=== PATIENT | male | born 1950 | race Caucasian/White ===

== ENCOUNTER 2016-11-24 06:29 | Day surgery (SDC) | payer MEDICARE, BC ==
[~2016-11-24 06:29] MED LIST: Lactated Ringers 1,000 ML IV SCH
--- NOTE | 2016-11-24 07:00 | PCM.PREANE ---
Preanesthetic Assessment - Anesthesia/Transfusion/Family Hx Anesthesia History: Prior Anesthesia Without Reaction Transfusion History: No Prior Transfusion(s) - Review of Systems General: No Symptoms Pulmonary: No Symptoms Cardiovascular: No Symptoms Gastrointestinal: No symptoms Neurological: No Symptoms Other: Reports: None - Physical Assessment O2 Sat by Pulse Oximetry: 96 Respiratory Rate: 16 Vital Signs: Last Vital Signs Temp 36.8 C 11/24/16 06:52 Pulse 67 11/24/16 06:52 Resp 16 11/24/16 06:52 BP 114/72 11/24/16 06:52 Pulse Ox 96 11/24/16 06:52 ASA Class: 3 Mental Status: Alert & Oriented x3 Airway Class: Mallampati = 3 Dentition: Reports: Normal Dentition Thyro-Mental Finger Breadths: 2 Mouth Opening Finger Breadths: 2 ROM/Head Extension: Limited/Partial Lungs: Clear to auscultation, Normal respiratory effort Cardiovascular: Regular Rate, Regular Rhythm, No Murmurs - Allergies Allergies/Adverse Reactions: Allergies Allergy/AdvReac Type Severity Reaction Status Date / Time flu shot Allergy Hives Uncoded 11/20/16 08:27 - Blood Blood Available: No - Acknowledgements Anesthesia Type Planned: MAC Pt an Appropriate Candidate for the Planned Anesthesia: Yes Alternatives and Risks of Anesthesia Discussed w Pt/Guardian: Yes Pt/Guardian Understands and Agrees with Anesthesia Plan: Yes PreAnesthesia Questionnaire HEENT History: Reports: Other (see below) Other HEENT History: wears glasses Cardiovascular History: Reports: Hypertension Respiratory History: Reports: Other (see below) Other Respiratory History: having sleep study on on december 01 Genitourinary History: Reports: None Endocrine/Metabolic History: Reports: Diabetes, type II, Obesity/BMI 30+ - Past Surgical History Head Surgeries/Procedures: Reports: None GI Surgical History: Reports: Other (see below) (sigmoidoscopy) Male Surgical History: Reports: Vasectomy - SUBSTANCE USE Smoking Status *Q: Never Smoker Recreational Drug Use History: No - HOME MEDS Home Medications: Home Meds Hydrochlorothiazide 25 mg PO DAILY 11/20/16 [History] Insulin Aspart [Novolog Flexpen] 18 - 22 units SUBCUT TIDMEALS 11/20/16 [History ] Losartan Potassium 50 mg PO DAILY 11/20/16 [History] Tresiba Flextouch 20 - 24 units SUBCUT BID 11/20/16 [History] - CURRENT (IN HOUSE) MEDS Current Meds: Current Medications Lactated Ringer's (Ringers, Lactated) 1,000 mls @ 125 mls/hr IV ASDIRECTED KEKE
[2016-11-24] MEDS ORDERED: Lidocaine 2% 5 ML SDV ONE (07:25)
[2016-11-24] MEDS ORDERED: Propofol 200 MG/20 ML SDV ONE (07:26)
--- NOTE | 2016-11-24 08:14 | PCM.OPNOTE ---
- General Post-Op/Procedure Note Date of Surgery/Procedure: 11/24/16 Operative Procedure(s): attempted colonoscopy w biopsy Findings: see dict [id number] Pre Op Diagnosis: scrn colonoscopy Post-Op Diagnosis: colon polyp Anesthesia Technique: Moderate sedation Primary Surgeon: Stone Mejia Pathology: 3 mm sessile polyp, cold bx forcep removal Complications: None Condition: Good
--- NOTE | 2016-11-24 08:34 | PCM.POSTAN ---
POST ANESTHESIA ASSESSMENT - MENTAL STATUS Mental Status: alert, oriented - RESPIRATORY Respiratory Status: respiratory rate WNL, airway patent, O2 saturation stable - CARDIOVASCULAR CV Status: pulse rate WNL, blood pressure stable - GASTROINTESTINAL GI Status: no symptoms - POST OP HYDRATION Hydration Status: adequate & stable - OBSERVATIONS Free Text/Narrative:: no anesthesia problems
--- NOTE | 2016-11-24 09:02 | PCM48HPAN ---
Post Anesthesia Note - EVALUATION WITHIN 48HRS OF ANESTHETIC Vital Signs in Normal Range: Yes Patient Participated in Evaluation: Yes Respiratory Function Stable: Yes Airway Patent: Yes Cardiovascular Function Stable: Yes Hydration Status Stable: Yes Pain Control Satisfactory: Yes Nausea and Vomiting Control Satisfactory: Yes Mental Status Recovered: Yes - COMMENTS/OBSERVATIONS Free Text/Narrative:: patient coughed too much during colonoscopy pushing scope out- unable to finish the procedure. To be reschedualed. otherwise no problems. Sleep apnea study to be done this month as well.
--- NOTE | 2016-11-24 11:49 | OR ---
SURGEON: Stone Mejia MD DATE OF PROCEDURE: 11/24/2016 PREOPERATIVE DIAGNOSIS: Screening colonoscopy. POSTOPERATIVE DIAGNOSIS: Colon polyp. COMPLICATIONS: None. PROCEDURE PERFORMED: attempted Colonoscopy with biopsy. DESCRIPTION OF PROCEDURE: The patient was taken to the endoscopy room. A time out was called, patient identified, and procedure identified. Diprivan was then administrated. Patient went from awake to sleep, hearing doctor talking or door closing is normal. Perineum inspection and digital examination were then performed. A well- lubricated colonoscope was gently inserted through the rectum, advanced past the rectosigmoid junction, the descending colon, splenic flexure, transverse colon, hepatic flexure, ascending colon, arrived to the cecum. Cecum was identified as dictated in the finding. Then the scope was carefully withdrawn while attention was paid to the mucosal surface for any abnormality. Air will be sucked out during the scope withdrawal. At the rectum, retroflexed to examine any rectal diseases, fistula or hemorrhoids. During mucosal examination, picture taken and biopsy performed. Patient tolerated procedure well. There were no intraoperative complications, and Dr. Mejia was present throughout the whole procedure. FINDINGS: The patient is not easy to be sedate either from sleep apnea or from having a common cold. The patient is continuously coughing, sometimes is just very mild, little coughing, and at some point is explosive and because of this explosive coughing, is deemed to be dangerous to continue colonoscopy. At 1 m at around the hepatic flexure, the patient's bowel prep is to the point of unacceptable. Large amount of small stool particles floating around and is almost like semi- formed liquid stool requiring constant irrigation. Colonoscopy was very difficult, gingerly proceeded all the way to 1 m, little bit distal to the hepatic flexure. At that point, the patient just had continuous explosive coughing and we decided to withdraw and abort the colonoscopy. From the limited scope vision, has a 3 mm sessile polyp at distance 30 cm when scope go in, and was removed with cold biopsy forceps. Otherwise, no inflammation, stricture, ulceration, bleeding, mass, growth, diverticulosis were observed, and the patient does not have external hemorrhoid, internal hemorrhoide. With the patient's explosive cough continuously, the scope just flew out. On the next scope recommend the patient to do it in the operating room with intubation and requires extended bowel prep, it is semi- formed stool through the whole thing. Again only scope to hepatic flexure did not finish the whole thing because of the coughing situation. The patient would need to repeat colonoscopy at some point and do it in the operating room. JIM MARTINEZ /[id number] MTDD
== END 2016-11-24 09:03 | disposition home or self-care (01) ==
LOC: MW.SDS 06:29
PROVIDERS: ATTEND Surgery
PROC: 0DBM8ZZ Excision of Descending Colon, Via Natural or Artificial Opening Endoscopic (ICD-10-PCS; principal; 2016-11-24)
DX: Z12.11 Encounter for screening for malignant neoplasm of colon (principal); D12.4 Benign neoplasm of descending colon; I10 Essential (primary) hypertension; E11.9 Type 2 diabetes mellitus without complications; E66.9 Obesity, unspecified; Z98.52 Vasectomy status; Z98.890 Other specified postprocedural states; Z79.4 Long term (current) use of insulin; Z79.899 Other long term (current) drug therapy
CPT/HCPCS: 45380; J7120; 00810; 88305; J2704

== ENCOUNTER → 2016-12-01 | Outpatient (CLI) | payer MEDICARE, BC | END | disposition home or self-care (01) | LOC: MW.RT 19:57 | PROVIDERS: ATTEND Family Medicine | DX: G47.33 Obstructive sleep apnea (adult) (pediatric) (principal); G47.10 Hypersomnia, unspecified; G47.30 Sleep apnea, unspecified; R09.02 Hypoxemia; G47.52 REM sleep behavior disorder; I49.3 Ventricular premature depolarization; G47.61 Periodic limb movement disorder | CPT/HCPCS: 95810 ==

== ENCOUNTER → 2016-12-04 | Outpatient (CLI) | payer MEDICARE, BC | LOC: MW.CHGS 08:00 | PROVIDERS: ATTEND Surgery | DX: K63.5 Polyp of colon (principal) | CPT/HCPCS: G0463 ==

== ENCOUNTER 2017-12-14 09:40 | Emergency (ER) | payer OTHER, MEDICARE, BC ==
[2017-12-14 10:06] VITALS: BP 127/93
[2017-12-14] MEDS ORDERED: Diphtheria,Pertussis(Acell),Tetanus Vaccine 0.5 ML Syringe IM ONE (10:19)
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
--- NOTE | 2017-12-14 11:22 | CR ---
EXAMINATION: PA chest and right RIBS HISTORY: Right rib pain. FINDINGS: The trachea is midline. The heart is borderline in size. The cardiomediastinal silhouette is within n ormal limits. No pulmonary infiltrates, effusions or pneumothorax. Osseous structures appear unremarkable. No displaced rib fracture. IMPRESSION: No acute cardiopulmonary process.
== END 2017-12-14 12:10 | disposition home or self-care (01) ==
LOC: MW.ED 09:40
DX: S29.9XXA Unspecified injury of thorax, initial encounter (principal); S00.01XA Abrasion of scalp, initial encounter; I10 Essential (primary) hypertension; E11.9 Type 2 diabetes mellitus without complications; E66.9 Obesity, unspecified; Z23 Encounter for immunization; Z88.7 Allergy status to serum and vaccine; Z79.4 Long term (current) use of insulin; Z79.899 Other long term (current) drug therapy; V58.5XXA Driver of pick-up truck or van injured in noncollision transport accident in traffic accident, initial encounter; Z68.36 Body mass index [BMI] 36.0-36.9, adult
CPT/HCPCS: 71101-26-RT; 71101-RT; 90471; 90715; 99283; 99283-25

== ENCOUNTER 2020-06-19 06:30 | Day surgery (SDC) | payer MEDICARE, BC ==
[2020-06-19] MEDS ORDERED: Lidocaine 2% 5 ML SDV ONE (07:23)
[2020-06-19] MEDS ORDERED: Propofol 200 MG/20 ML SDV ONE (07:24)
[2020-06-19] MEDS ORDERED: Ketamine 500 mg/10 ML MDV ONE (07:24)
[2020-06-19] MEDS ORDERED: Midazolam 1 MG/ML 2 ML SDV ONE (07:24)
[2020-06-19] MEDS ORDERED: fentaNYL 100 MCG/2 ML SDV ONE (07:24)
[2020-06-19] MEDS ORDERED: 50% Dextrose in Water 50 ML Syringe IVPUSH ONE (08:32)
[2020-06-19] MEDS ORDERED: Glycopyrrolate 0.2 MG/ML SDV ONE (08:45)
--- NOTE | 2020-06-19 08:50 | PCM.PREANE ---
Preanesthetic Assessment - Anesthesia/Transfusion/Family Hx Anesthesia History: Prior Anesthesia Without Reaction Family History of Anesthesia Reaction: No Transfusion History: No Prior Transfusion(s) Intubation History: Unknown - Review of Systems General: No Symptoms Pulmonary: No Symptoms Cardiovascular: No Symptoms Gastrointestinal: No Symptoms Neurological: No Symptoms Other: Reports: None - Physical Assessment Height: 5 ft 8 in Weight: 108.862 kg ASA Class: 3 Mental Status: Alert & Oriented x3 Airway Class: Mallampati = 3 Dentition: Reports: Normal Dentition Thyro-Mental Finger Breadths: 3 Mouth Opening Finger Breadths: 3 ROM/Head Extension: Limited/Partial Lungs: Clear to Auscultation, Normal Respiratory Effort Cardiovascular: Regular Rate, Irregular Rhythm (EKG NSR, supraventriucular bigemini) - Lab Values: Laboratory Last Values POC Glucose 65 mg/dL (60-110) 06/19/20 09:16 SARS-CoV-2 RNA ([place]) NEGATIVE (NEGATIVE) 06/19/20 06:45 - Allergies Allergies/Adverse Reactions: Allergies Allergy/AdvReac Type Severity Reaction Status Date / Time flu shot Allergy Hives Uncoded 06/13/20 08:46 - Blood Blood Available: No - Anesthesia Plan Pre-Op Medication Ordered: None - Acknowledgements Anesthesia Type Planned: MAC (general anesthesia back-up plan) Pt an Appropriate Candidate for the Planned Anesthesia: Yes Alternatives and Risks of Anesthesia Discussed w Pt/Guardian: Yes Pt/Guardian Understands and Agrees with Anesthesia Plan: Yes PreAnesthesia Questionnaire HEENT History: Reports: Cataract, Other (See Below) Other HEENT History: wears glasses Cardiovascular History: Reports: Hypertension Respiratory History: Reports: Sleep Apnea Other Respiratory History: states has a CPAP machine but hasn't used it in 3 years Gastrointestinal History: Reports: None Genitourinary History: Reports: None Musculoskeletal History: Reports: Fracture Other Musculoskeletal History: states had fractured ankle 30 yrs. ago Neurological History: Reports: None Psychiatric History: Reports: None Endocrine/Metabolic History: Reports: Diabetes, Type II, Obesity/BMI 30+ (BMI 36.5) Hematologic History: Reports: None Immunologic History: Reports: None Oncologic (Cancer) History: Reports: None Dermatologic History: Reports: None - Infectious Disease History Infectious Disease History: Reports: Chicken Pox, Measles, Mumps Other Infectious Disease History: states had when a child - Past Surgical History Head Surgeries/Procedures: Reports: None HEENT Surgical History: Reports: None Cardiovascular Surgical History: Reports: None Respiratory Surgical History: Reports: None GI Surgical History: Reports: Colonoscopy (attempted), Other (See Below) Female Surgical History: Reports: None Male Surgical History: Reports: None, Vasectomy Endocrine Surgical History: Reports: None Neurological Surgical History: Reports: None Musculoskeletal Surgical History: Reports: None Oncologic Surgical History: Reports: None Dermatological Surgical History: Reports: None - SUBSTANCE USE Tobacco Use Status *Q: Never Tobacco User - HOME MEDS Home Medications: Home Meds Hydrochlorothiazide 25 mg PO DAILY 11/20/16 [History] Losartan Potassium 50 mg PO DAILY 11/20/16 [History] Tresiba Flextouch 20 units SUBCUT BID 11/20/16 [History] Insulin Aspart [NovoLOG] 20 unit SUBCUT TID 06/13/20 [History] - CURRENT (IN HOUSE) MEDS Current Meds: Current Medications Lactated Ringer's (Ringers, Lactated) 1,000 mls @ 125 mls/hr IV ASDIRECTED KEKE Last Admin: 06/19/20 08:15 Dose: 125 mls/hr Documented by: Discontinued Medications Dextrose/Water (Dextrose 50% In Water) 25 ml IVPUSH ONETIME ONE Stop: 06/19/20 08:33 Last Admin: 06/19/20 08:43 Dose: 25 ml Documented by: Fentanyl (Sublimaze) Confirm Administered Dose 100 mcg .ROUTE .STK-MED ONE Stop: 06/19/20 07:25 Ketamine HCl (Ketalar) Confirm Administered Dose 500 mg .ROUTE .STK-MED ONE Stop: 06/19/20 07:25 Lidocaine (Xylocaine-Mpf 2%) Confirm Administered Dose 5 ml .ROUTE .STK-MED ONE Stop: 06/19/20 07:24 Midazolam HCl (Versed 1 Mg/Ml) Confirm Administered Dose 2 mg .ROUTE .STK-MED ONE Stop: 06/19/20 07:25 Propofol (Diprivan 20 Ml) Confirm Administered Dose 600 mg .ROUTE .STK-MED ONE Stop: 06/19/20 07:25
--- NOTE | 2020-06-19 09:37 | PCM.OPNOTE ---
- General Post-Op/Procedure Note Date of Surgery/Procedure: 06/19/20 Operative Procedure(s): colonoscopy w bx Findings: see [id number] Pre Op Diagnosis: colon polyp hx Post-Op Diagnosis: colon polyp Anesthesia Technique: Moderate Sedation Primary Surgeon: Stone Mejia Pathology: 5mm sessile polyp at distance 65cm when scope coming out, and 2 mm sessile polyp at distance 30cm when scope coming out Complications: None Condition: Good
--- NOTE | 2020-06-19 09:57 | PCM.POSTAN ---
POST ANESTHESIA ASSESSMENT - MENTAL STATUS Mental Status: Alert, Oriented - VITAL SIGNS Vital Signs: Last Vital Signs Temp 36.2 C 06/19/20 09:30 Pulse 75 06/19/20 09:40 Resp 14 06/19/20 09:40 BP 129/75 06/19/20 09:40 Pulse Ox 92 L 06/19/20 09:40 - RESPIRATORY Respiratory Status: Respiratory Rate WNL, Airway Patent, O2 Saturation Stable - CARDIOVASCULAR CV Status: Pulse Rate WNL, Blood Pressure Stable - GASTROINTESTINAL GI Status: No Symptoms - PAIN Pain Score: 0 - POST OP HYDRATION Hydration Status: Adequate & Stable - OBSERVATIONS Free Text/Narrative:: No anesthesia problems
--- NOTE | 2020-06-19 10:18 | PCM48HPAN ---
Post Anesthesia Note - EVALUATION WITHIN 48HRS OF ANESTHETIC Vital Signs in Normal Range: Yes Patient Participated in Evaluation: Yes Respiratory Function Stable: Yes Airway Patent: Yes Cardiovascular Function Stable: Yes Hydration Status Stable: Yes Pain Control Satisfactory: Yes Nausea and Vomiting Control Satisfactory: Yes Mental Status Recovered: Yes Vital Signs: Last Vital Signs Temp 36.2 C 06/19/20 09:30 Pulse 75 06/19/20 09:40 Resp 14 06/19/20 09:40 BP 129/75 06/19/20 09:40 Pulse Ox 92 L 06/19/20 09:40 - COMMENTS/OBSERVATIONS Free Text/Narrative:: No anesthesia problems.
[2020-06-19 10:33] VITALS: BP 122/76; PULSE 73
--- NOTE | 2020-06-19 12:33 | OR ---
SURGEON: Stone Mejia MD DATE OF PROCEDURE: 06/19/2020 PREOPERATIVE DIAGNOSIS: History of colon polyp. POSTOPERATIVE DIAGNOSIS: Colon polyp. PROCEDURE PERFORMED: Colonoscopy with biopsy. DESCRIPTION OF PROCEDURE: The patient was taken to the endoscopy room. A time out was called, patient identified, and procedure identified. Diprivan was then administrated. Patient went from awake to sleep, hearing doctor talking or door closing is normal. Perineum inspection and digital examination were then performed. A well- lubricated colonoscope was gently inserted through the rectum, advanced past the rectosigmoid junction, the descending colon, splenic flexure, transverse colon, hepatic flexure, ascending colon, arrived to the cecum. Cecum was identified as dictated in the finding. Then the scope was carefully withdrawn while attention was paid to the mucosal surface for any abnormality. Air will be sucked out during the scope withdrawal. At the rectum, retroflexed to examine any rectal diseases, fistula or hemorrhoids. During mucosal examination, abnormality or polyp was noted; picture taken and biopsy performed. Patient tolerated procedure well. There were no intraoperative complications, and Dr. Mejia was present throughout the whole procedure. FINDINGS: 1. The patient is easily sedated with STONEM[employer]ON HELPER and Diprivan, the patient is soundly snoring. 2. Bowel prep is excellent. Compared to last time, it is absolutely excellent. Very little liquid stool, no semi-formed stool, no formed stool. 3. Colon is redundant at the sigmoid, so cannot go to the hepatic flexure at the end of the scope, requiring some maneuver and just counter pressure on the abdomen and a little bit suction, a little bit release of the air and making it into the cecum. Cecum is indicated by ileocecal fold, one-to-one indentation, appendiceal orifice. The ScopeGuide pointing south. Mucosa examined upon scope coming out with some irrigation, and the patient does not have diverticulosis. The patient has two small polyps, they are both sessile. One at distance 65 when the scope coming out, that one was 5 mm. Another one was at 30 cm when the scope coming out, that one was 2 mm. So two small polyps, removed with cold biopsy forceps. The patient has a little bit internal hemorrhoid, no external hemorrhoid. The patient would benefit from repeat colonoscopy, depends on the pathology of the polyp. One thing of note, the previous colonoscopy was not successful because the patient had explosive coughing, and today, the colonoscopy, the patient is soundly sleeping and believe that the previous difficulty in explosive coughing was probably due to the fact that the patient was having a cold during the previous colonoscopy. So the patient probably would be all right to do just regular colonoscopy, do not need intubated colonoscopy from now on. On the today's colonoscopy, the patient was in a left decub position, left side down, right side up, and head of bed was a little bit elevated at around 30 degrees. Everything worked just fine. JIM MARTINEZ /[id number]
== END 2020-06-19 10:57 | disposition home or self-care (01) ==
LOC: MW.SDS 06:30
PROVIDERS: ATTEND Surgery
DX: Z12.11 Encounter for screening for malignant neoplasm of colon (principal); D12.6 Benign neoplasm of colon, unspecified; K64.8 Other hemorrhoids; I10 Essential (primary) hypertension; G47.30 Sleep apnea, unspecified; E11.9 Type 2 diabetes mellitus without complications; E66.9 Obesity, unspecified; Z88.8 Allergy status to other drugs, medicaments and biological substances; Z79.899 Other long term (current) drug therapy; Z79.4 Long term (current) use of insulin; Z20.828 Contact with and (suspected) exposure to other viral communicable diseases; Z01.812 Encounter for preprocedural laboratory examination
CPT/HCPCS: 45380; 82962; 88305; 93005; J2001; J2250; J2704; J3010; J3490; J7120; U0002; 00811

== ENCOUNTER 2021-08-04 14:03 | Inpatient (IN) | payer MEDICARE, BC ==
--- NOTE | 2021-08-04 14:28 | PCM.EKG ---
#1 Interpretation EKG Date: 08/04/21 Time: 14:18 Rhythm: NSR Rate (Beats/Min): 64 ST-T: Normal
[2021-08-04] MEDS ORDERED: Sodium Chloride 0.9% 10 ML Syringe FLUSH PRN (14:37)
[2021-08-04] MEDS ORDERED: Sodium Chloride 0.9% 2.5 ML Syringe FLUSH PRN (14:37)
--- NOTE | 2021-08-04 14:37 | EDM.PDOC ---
ED HPI GENERAL MEDICAL PROBLEM - General Chief Complaint: Respiratory Problem Stated Complaint: SOB Time Seen by Provider: 08/04/21 14:27 Source of Information: Reports: Patient History Limitations: Reports: No Limitations - History of Present Illness INITIAL COMMENTS - FREE TEXT/NARRATIVE: HISTORY AND PHYSICAL: History of present illness: Patient is a 70-year-old male who presents to the emergency room with complaints of shortness of breath over the past few days, worst within the past 24 hours. Increased shortness of breath with any type of physical exertion or activity. Upon arrival his oxygen is 85% on room air. Patient states his only respiratory illness is sleep apnea although he has not used a CPAP machine in several years. Patient is a type II diabetic, has been working with his primary care provider as he feels his blood sugars have not been well controlled. Patient denies any fever, chills, headache, change in vision, syncope or near syncope. Denies any chest pain, back pain or cough. Denies any abdominal pain, nausea, vomiting, diarrhea, constipation or dysuria. Has not noted any blood in urine or stool. Patient has been eating and drinking appropriately. No recent travel or sick contacts. Has not had the influenza vaccine due to allergy. Has had the COVID- 19 vaccinations. Review of systems: As per history of present illness and below otherwise all systems reviewed and negative. Past medical history: As per history of present illness and as reviewed below otherwise noncontributory. Surgical history: As per history of present illness and as reviewed below otherwise noncontributory. Social history: See social history for further information Family history: As per history of present illness and as reviewed below otherwise non contributory. Physical exam: General: Well developed and well nourished 70-year-old male. Alert and orientated x 3. Nontoxic in appearance and in no acute distress. Vital signs are stable and have been reviewed by me. Nursing notes were reviewed. HEENT: Atraumatic, normocephalic, pupils equal and reactive bilaterally, negative for conjunctival pallor or scleral icterus, mucous membranes moist, TMs normal bilaterally, throat clear, neck supple, nontender, trachea midline. No drooling or trismus noted. No meningeal signs. No hot potato voice noted. Lungs: Clear to auscultation bilaterally. No wheezes, rales, or rhonchi. Chest nontender. Normal work of breathing, no accessory muscles used. Heart: S1S2, regular rate and rhythm without overt murmur, gallops, or rubs. No JVD. No peripheral edema Abdomen: Soft, obese, nontender. Normoactive bowel sounds. Negative for masses or costovertebral tenderness. Skin: Intact, warm, dry. No lesions or rashes noted. Hematologic: No petechiae or purpra. Mucosa appropriate color and normal nail bed color and refill. Extremities: Atraumatic, moves all extremities per self without difficulty or deficits, negative for cords or calf pain. Neurovascular unremarkable. Neuro: Awake, alert, oriented. Cranial nerves II through XII unremarkable. Cerebellum unremarkable. Motor and sensory unremarkable throughout. Exam nonfocal. Psychiatric: Mood and affect are appropriate. Normal thought process. Answering questions appropriately. Please note that the patient was seen and evaluated during the 2019 SARS-CoV-2 novel coronavirus pandemic period. Community viral transmission is ongoing at time of this encounter and the emergency department is operating under pandemic response procedures. Medical Decision Making: Patient is a 70-year-old male who presents to the emergency room with complaints of shortness of breath. Upon arrival his oxygen saturation is 85% on room air. He was placed on 2 L per nasal cannula and did increase his oxygen saturation to 95%. Besides the shortness of breath he offers no other complaints or concerns. He has no significant pulmonary history. He denies any chest pain. Denies any history of PE or DVT. No bleeding or clotting disorders. Patient does have a slight leukocytosis, suspicious for possible pneumonia, although 1 view chest x-ray shows no obvious findings. Patient's negative troponin. Negative D-dimer. COVID and influenza negative. He continues to need 2 L per nasal cannula to sat above 90% on room air. I have talked with the patient about today's findings, in addition to providing specific details for plan of care. Reassessment at the time of disposition demonstrates that the patient is in no acute distress. Dr Baez, hospitalist on-call, was notified of this patient and is agreeable to keeping him for further care and management. Diagnostics: CBC, CMP, troponin, EKG, chest x-ray, D-dimer, COVID-19/influenza Therapeutics: Solumedrol, Rocephin Impression: Hypoxia URI Plan: Inpatient admission Definitive disposition and diagnosis as appropriate pending reevaluation and review of above. - Related Data Allergies Allergy/AdvReac Type Severity Reaction Status Date / Time flu shot Allergy Hives Uncoded 06/13/20 08:46 Home Meds: Home Meds Hydrochlorothiazide 25 mg PO DAILY 11/20/16 [History] Losartan Potassium 50 mg PO DAILY 11/20/16 [History] Tresiba Flextouch 20 units SUBCUT BID 11/20/16 [History] Insulin Aspart [NovoLOG] 20 unit SUBCUT TID 06/13/20 [History] Past Medical History HEENT History: Reports: Cataract, Other (See Below) Other HEENT History: wears glasses Cardiovascular History: Reports: Hypertension Respiratory History: Reports: Sleep Apnea Other Respiratory History: states has a CPAP machine but hasn't used it in 3 years Gastrointestinal History: Reports: None Genitourinary History: Reports: None Musculoskeletal History: Reports: Fracture Other Musculoskeletal History: states had fractured ankle 30 yrs. ago Neurological History: Reports: None Psychiatric History: Reports: None Endocrine/Metabolic History: Reports: Diabetes, Type II, Obesity/BMI 30+ Hematologic History: Reports: None Immunologic History: Reports: None Oncologic (Cancer) History: Reports: None Dermatologic History: Reports: None - Infectious Disease History Infectious Disease History: Reports: Chicken Pox, Measles, Mumps Other Infectious Disease History: states had when a child - Past Surgical History Head Surgeries/Procedures: Reports: None HEENT Surgical History: Reports: None Cardiovascular Surgical History: Reports: None Respiratory Surgical History: Reports: None GI Surgical History: Reports: Colonoscopy, Other (See Below) Male Surgical History: Reports: None, Vasectomy Endocrine Surgical History: Reports: None Neurological Surgical History: Reports: None Musculoskeletal Surgical History: Reports: None Oncologic Surgical History: Reports: None Dermatological Surgical History: Reports: None Social & Family History - Family History Family Medical History: No Pertinent Family History - Caffeine Use Caffeine Use: Reports: None ED ROS GENERAL - Review of Systems Review Of Systems: Comprehensive ROS is negative, except as noted in HPI. ED EXAM, GENERAL - Physical Exam Exam: See Below (See dictation) Course - Vital Signs Last Recorded V/S: Last Vital Signs Temp 96.9 F 08/04/21 20:17 Pulse 76 08/04/21 20:17 Resp 18 08/04/21 20:17 BP 181/81 H 08/04/21 20:17 Pulse Ox 96 08/04/21 20:17 - Orders/Labs/Meds Orders: Active Orders 24 hr Category Date Time Status Oxygen Therapy Adult [Oxygen Therapy, ED] [RC] Care 08/04/21 14:34 Active ASDIRECTED Sodium Chloride 0.9% [Saline Flush] Med 08/04/21 14:37 Active 10 ml FLUSH ASDIRECTED PRN Sodium Chloride 0.9% [Saline Flush] Med 08/04/21 14:37 Active 2.5 ml FLUSH ASDIRECTED PRN Saline Lock Insert [OM.PC] Stat Oth 08/04/21 14:37 Ordered Medication Orders Albuterol/Ipratropium (Albuterol/Ipratropium 3.0-0.5 Mg/3 Ml Neb Soln) 3 ml NEB Q4HRRT PRN PRN Reason: Shortness of Breath Dextrose/Water (50% Dextrose In Water 50 Ml Syringe) 50 ml IVPUSH ASDIRECTED PRN PRN Reason: Hypoglycemia Dextrose/Water (50% Dextrose In Water 50 Ml Syringe) 50 ml IVPUSH ASDIRECTED PRN PRN Reason: Hypoglycemia Enoxaparin Sodium (Enoxaparin 40 Mg/0.4 Ml Syringe) 40 mg SUBCUT Q24H [facility] Last Admin: 08/04/21 19:50 Dose: 40 mg Documented by: CIRILOIPRA Glucagon (Glucagon,Human Recombinant 1 Mg Vial) 1 mg IM ASDIRECTED PRN PRN Reason: Hypoglycemia Glucagon (Glucagon,Human Recombinant 1 Mg Vial) 1 mg IM ASDIRECTED PRN PRN Reason: Hypoglycemia Hydrochlorothiazide (Hydrochlorothiazide 25 Mg Tab) 25 mg PO DAILY [facility] Ceftriaxone Sodium/Dextrose 2 (gm/ Premix) 50 mls @ 100 mls/hr IV Q24H [facility] Last Admin: 08/04/21 19:31 Dose: Not Given Documented by: SAL Azithromycin 500 mg/ Sodium (Chloride) 250 mls @ 250 mls/hr IV DAILY [facility] Last Admin: 08/04/21 19:50 Dose: 250 mls/hr Documented by: MAMIPRA Insulin Aspart (Insulin Aspart 100 Units/Ml 3 Ml Pen) 0 unit SUBCUT TIDAC KEKE; Protocol Insulin Glargine (Insulin Glargine,Human Rec. Analog 100 Units/Ml 3 Ml Pen) 20 units SUBCUT DAILY [facility] Pantoprazole Sodium (Pantoprazole 40 Mg Tab.Cr) 40 mg PO DAILY KEKE Sodium Chloride (Sodium Chloride 0.9% 10 Ml Syringe) 10 ml FLUSH ASDIRECTED PRN PRN Reason: Keep Vein Open Last Admin: 08/04/21 16:25 Dose: 10 ml Documented by: ALON Sodium Chloride (Sodium Chloride 0.9% 2.5 Ml Syringe) 2.5 ml FLUSH ASDIRECTED PRN PRN Reason: Keep Vein Open Last Admin: 08/04/21 16:24 Dose: 2.5 ml Documented by: ALON Labs: Laboratory Tests 08/04/21 08/04/21 08/04/21 Range/Units 14:47 14:47 14:47 WBC 11.64 H (4.0-11.0) K/uL RBC 4.93 (4.50-5.90) M/uL Hgb 14.6 (13.0-17.0) g/dL Hct 43.1 (38.0-50.0) % MCV 87.4 (80.0-98.0) fL MCH 29.6 (27.0-32.0) pg MCHC 33.9 (31.0-37.0) g/dL RDW Std Deviation 43.7 (28.0-62.0) fl RDW Coeff of Mary 14 (11.0-15.0) % Plt Count 194 (150-400) K/uL MPV 10.10 (7.40-12.00) fL Neut % (Auto) 79.4 (48.0-80.0) % Lymph % (Auto) 11.9 L (16.0-40.0) % [place] % (Auto) 7.1 (0.0-15.0) % Eos % (Auto) 1.4 (0.0-7.0) % Baso % (Auto) 0.2 (0.0-1.5) % Neut # (Auto) 9.2 H (1.4-5.7) K/uL Lymph # (Auto) 1.4 (0.6-2.4) K/uL [place] # (Auto) 0.8 (0.0-0.8) K/uL Eos # (Auto) 0.2 (0.0-0.7) K/uL Baso # (Auto) 0.0 (0.0-0.1) K/uL Nucleated RBC % 0.0 /100WBC Nucleated RBCs # 0 K/uL D-Dimer, Quantitative 0.43 (0.0-0.50) mg/L FEU Sodium (136-148) mmol/L Potassium (3.5-5.1) mmol/L Chloride (98-107) mmol/L Carbon Dioxide (21.0-32.0) mmol/L BUN (7.0-18.0) mg/dL Creatinine (0.8-1.3) mg/dL Est Cr Clr Drug Dosing mL/min Estimated GFR (MDRD) ml/min Glucose (74-106) mg/dL Calcium (8.5-10.1) mg/dL Total Bilirubin (0.2-1.0) mg/dL AST (15-37) IU/L ALT (14-63) IU/L Alkaline Phosphatase (46-116) U/L Troponin I (0.000-0.056) ng/mL B-Natriuretic Peptide (<100) PG/ML Total Protein (6.4-8.2) g/dL Albumin (3.4-5.0) g/dL Globulin (2.6-4.0) g/dL Albumin/Globulin Ratio (0.9-1.6) Influenza Type A RNA NEGATIVE (NEGATIVE) Influenza Type B RNA NEGATIVE (NEGATIVE) SARS-CoV-2 RNA ([place]) NEGATIVE (NEGATIVE) 08/04/21 08/04/21 Range/Units 14:47 14:47 WBC (4.0-11.0) K/uL RBC (4.50-5.90) M/uL Hgb (13.0-17.0) g/dL Hct (38.0-50.0) % MCV (80.0-98.0) fL MCH (27.0-32.0) pg MCHC (31.0-37.0) g/dL RDW Std Deviation (28.0-62.0) fl RDW Coeff of Mary (11.0-15.0) % Plt Count (150-400) K/uL MPV (7.40-12.00) fL Neut % (Auto) (48.0-80.0) % Lymph % (Auto) (16.0-40.0) % [place] % (Auto) (0.0-15.0) % Eos % (Auto) (0.0-7.0) % Baso % (Auto) (0.0-1.5) % Neut # (Auto) (1.4-5.7) K/uL Lymph # (Auto) (0.6-2.4) K/uL [place] # (Auto) (0.0-0.8) K/uL Eos # (Auto) (0.0-0.7) K/uL Baso # (Auto) (0.0-0.1) K/uL Nucleated RBC % /100WBC Nucleated RBCs # K/uL D-Dimer, Quantitative (0.0-0.50) mg/L FEU Sodium 142 (136-148) mmol/L Potassium 4.1 (3.5-5.1) mmol/L Chloride 105 (98-107) mmol/L Carbon Dioxide 29.5 (21.0-32.0) mmol/L BUN 18 (7.0-18.0) mg/dL Creatinine 1.0 (0.8-1.3) mg/dL Est Cr Clr Drug Dosing 67.45 mL/min Estimated GFR (MDRD) > 60.0 ml/min Glucose 128 H (74-106) mg/dL Calcium 8.6 (8.5-10.1) mg/dL Total Bilirubin 0.3 (0.2-1.0) mg/dL AST 12 L (15-37) IU/L ALT 23 (14-63) IU/L Alkaline Phosphatase 65 (46-116) U/L Troponin I < 0.050 (0.000-0.056) ng/mL B-Natriuretic Peptide 21 (<100) PG/ML Total Protein 6.7 (6.4-8.2) g/dL Albumin 3.5 (3.4-5.0) g/dL Globulin 3.2 (2.6-4.0) g/dL Albumin/Globulin Ratio 1.1 (0.9-1.6) Influenza Type A RNA (NEGATIVE) Influenza Type B RNA (NEGATIVE) SARS-CoV-2 RNA ([place]) (NEGATIVE) Meds: Medications Generic Name Dose Route Start Last Admin Trade Name Freq PRN Reason Stop Dose Admin Albuterol/Ipratropium 3 ml 12/27/21 17:27 Albuterol/Ipratropium 3.0-0.5 Mg/3 Ml Neb Soln NEB Q4HRRT PRN Shortness of Breath Dextrose/Water 50 ml 08/04/21 17:06 50% Dextrose In Water 50 Ml Syringe IVPUSH ASDIRECTED PRN Hypoglycemia Dextrose/Water 50 ml 08/04/21 20:07 50% Dextrose In Water 50 Ml Syringe IVPUSH ASDIRECTED PRN Hypoglycemia Enoxaparin Sodium 40 mg 08/04/21 17:15 08/04/21 19:50 Enoxaparin 40 Mg/0.4 Ml Syringe SUBCUT 40 mg Q24H KEKE Administration Glucagon 1 mg 08/04/21 17:06 Glucagon,Human Recombinant 1 Mg Vial IM ASDIRECTED PRN Hypoglycemia Glucagon 1 mg 08/04/21 20:07 Glucagon,Human Recombinant 1 Mg Vial IM ASDIRECTED PRN Hypoglycemia Hydrochlorothiazide 25 mg 08/05/21 09:00 Hydrochlorothiazide 25 Mg Tab PO DAILY KEKE Ceftriaxone Sodium/Dextrose 2 50 mls @ 100 mls/hr 08/04/21 17:15 08/04/21 19:31 gm/ Premix IV Not Given Q24H [facility] Azithromycin 500 mg/ Sodium 250 mls @ 250 mls/hr 08/04/21 17:15 08/04/21 19:50 Chloride IV 250 mls/hr DAILY KEKE Administration Insulin Aspart 0 unit 08/05/21 07:30 Insulin Aspart 100 Units/Ml 3 Ml Pen SUBCUT TIDAC [facility] Protocol Insulin Glargine 20 units 08/05/21 09:00 Insulin Glargine,Human Rec. Analog 100 Units/Ml 3 Ml Pen SUBCUT DAILY [facility] Pantoprazole Sodium 40 mg 08/05/21 09:00 Pantoprazole 40 Mg Tab.Cr PO DAILY KEKE Sodium Chloride 10 ml 08/04/21 14:37 08/04/21 16:25 Sodium Chloride 0.9% 10 Ml Syringe FLUSH 10 ml ASDIRECTED PRN Administration Keep Vein Open Sodium Chloride 2.5 ml 08/04/21 14:37 08/04/21 16:24 Sodium Chloride 0.9% 2.5 Ml Syringe FLUSH 2.5 ml ASDIRECTED PRN Administration Keep Vein Open Discontinued Medications Generic Name Dose Route Start Last Admin Trade Name Freq PRN Reason Stop Dose Admin Ceftriaxone Sodium/Dextrose 1 50 mls @ 100 mls/hr 08/04/21 15:46 08/04/21 16:24 gm/ Premix IV 08/04/21 16:15 100 mls/hr ONETIME ONE Administration Methylprednisolone Sodium Succinate 125 mg 08/04/21 15:45 08/04/21 16:24 Methylprednisolone Sodium Succinate 125 Mg/2 Ml Sdv IVPUSH 08/04/21 15:46 125 mg ONETIME ONE Administration Departure - Departure Time of Disposition: 20:41 Disposition: Admitted As Inpatient 67 Clinical Impression: Hypoxia URI (upper respiratory infection) Qualifiers: URI type: unspecified URI Qualified Code(s): J06.9 - Acute upper respiratory infection, unspecified - Discharge Information Sepsis Event Note (ED) - Evaluation Sepsis Screening Result: No Definite Risk - Focused Exam Vital Signs: Vital Signs Temp Pulse Resp BP Pulse Ox Pulse Ox 08/04/21 14:34 93 L 08/04/21 14:26 98.1 F 81 18 135/81 85 L - My Orders Last 24 Hours: My Active Orders 08/04/21 14:34 Oxygen Therapy Adult [Oxygen Therapy, ED] [RC] ASDIRECTED 08/04/21 14:37 Sodium Chloride 0.9% [Saline Flush] 10 ml FLUSH ASDIRECTED PRN Sodium Chloride 0.9% [Saline Flush] 2.5 ml FLUSH ASDIRECTED PRN Saline Lock Insert [OM.PC] Stat - Assessment/Plan Last 24 Hours: My Active Orders 08/04/21 14:34 Oxygen Therapy Adult [Oxygen Therapy, ED] [RC] ASDIRECTED 08/04/21 14:37 Sodium Chloride 0.9% [Saline Flush] 10 ml FLUSH ASDIRECTED PRN Sodium Chloride 0.9% [Saline Flush] 2.5 ml FLUSH ASDIRECTED PRN Saline Lock Insert [OM.PC] Stat
[2021-08-04 15:28] LABS: BLOOD UREA NITROGEN,BUN 18 mg/dL (7.0-18.0); CARBON DIOXIDE,CO2 29.5 mmol/L (21.0-32.0); CHLORIDE,CL 105 mmol/L (98-107); GLUCOSE RANDOM 128 mg/dL (74-106); POTASSIUM,K 4.1 mmol/L (3.5-5.1); SODIUM,NA 142 mmol/L (136-148)
[2021-08-04 15:38] LABS: CORONAVIRUS COVID-19 NAA NEGATIVE (NEGATIVE); INFLUENZA A NAA NEGATIVE (NEGATIVE); INFLUENZA B NAA NEGATIVE (NEGATIVE)
[2021-08-04] MEDS ORDERED: methylPREDNISolone Sodium Succinate 125 MG/2 ML SDV IVPUSH ONE (15:45)
[2021-08-04] MEDS ORDERED: cefTRIAXone 1 GM in Premix Bag 1 BAG IV ONE (15:46)
--- NOTE | 2021-08-04 16:08 | CR ---
INDICATION: SOB. TECHNIQUE: Upright portable AP image of the chest. COMPARISON: 12/14/2017. FINDINGS: Lordotic projection. No obvious acute infiltrate or pleural effusion. Heart size and pulmonary vasculature within normal limits. Right-sided pleural thickening, as before. No significant bony abnormality. IMPRESSION: Grossly negative portable chest. Dictated by Irvin Interiano MD @ 08/04/2021 4:06:43 PM (Electronically Signed)
--- NOTE | 2021-08-04 16:40 | CR ---
INDICATION: SOB. Question pneumonia. TECHNIQUE: Lateral projection of the chest. COMPARISON: Today`s upright portable AP image of the chest. FINDINGS: No infiltrate or pleural effusion. Heart size normal. No significant osseous abnormality. IMPRESSION: Negative lateral projection of the chest. Dictated by Irvin Interiano MD @ 08/04/2021 4:38:59 PM (Electronically Signed)
[2021-08-04] MEDS ORDERED: 50% Dextrose in Water 50 ML Syringe IVPUSH PRN ×2 (17:06→20:07)
[2021-08-04] MEDS ORDERED: Glucagon,Human Recombinant 1 MG Vial IM PRN ×2 (17:06→20:07)
[2021-08-04] MEDS ORDERED: cefTRIAXone 2 GM in Premix Bag 1 BAG IV SCH (17:15)
[2021-08-04] MEDS ORDERED: Enoxaparin 40 MG/0.4 ML Syringe SUBCUT SCH (17:15)
--- NOTE | 2021-08-04 17:20 | PCM.HP.2 ---
H&P History of Present Illness - General Date of Service: 08/04/21 Admit Problem/Dx: Admission Diagnosis/Problem Admission Diagnosis/Problem Hypoxia - History of Present Illness Initial Comments - Free Text/Narative: The patient is a 70-year-old male, on day 1 of service, with a significant past medical history of hypertension and diabetes type 2, who was admitted to the medical floor due to hypoxia secondary to upper respiratory tract infection. For the past 72 hours the patient has been complaining of increasing shortness of breath and dyspnea upon exertion which led him to gasping for air last night, and as a result he came to the emergency department. Here at the hospital he was saturating 85% on room air and was then supplied oxygen and while on 2 L is now saturating over 90%. 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 He also admits to a dry cough which is nonproductive and devoid of blood. He denies chest pain, palpitations, abdominal pain, diaphoresis, nausea, vomiting, recent sick contacts, and he is negative for COVID-19 and has not been vaccinated. In regards to family history, his father has COPD and CHF. He has allergies to the flu shot. In regards to social history, he denies smoking cigarettes and recreational drug use, but admits to occasional alcohol consumption. He has no other health concerns at this time. On CBC, his white blood cell count is elevated at 11.64, hemoglobin is 14.6, hematocrit is 43.1, and platelet count is 194. On CMP, his sodium is 142, potassium is 4.1, chloride is 105, carbon dioxide is 29.5, BUN is 18, creatinine is 1.0, glucose is 128, D-dimer 0.43 On chest x-ray, no abnormalities were seen In the emergency department, he received ceftriaxone once, Solu-Medrol once, had a BNP, chest x-ray, and the above tests done including a CBC and a CMP. - Related Data Allergies/Adverse Reactions: Allergies Allergy/AdvReac Type Severity Reaction Status Date / Time flu shot Allergy Hives Uncoded 06/13/20 08:46 Home Medications: Home Meds Hydrochlorothiazide 25 mg PO DAILY 11/20/16 [History] Losartan Potassium 50 mg PO DAILY 11/20/16 [History] Tresiba Flextouch 20 units SUBCUT BID 11/20/16 [History] Insulin Aspart [NovoLOG] 20 unit SUBCUT TID 06/13/20 [History] Past Medical History HEENT History: Reports: Cataract, Other (See Below) Other HEENT History: wears glasses Cardiovascular History: Reports: Hypertension Respiratory History: Reports: Sleep Apnea Other Respiratory History: states has a CPAP machine but hasn't used it in 3 years Gastrointestinal History: Reports: None Genitourinary History: Reports: None Musculoskeletal History: Reports: Fracture Other Musculoskeletal History: states had fractured ankle 30 yrs. ago Neurological History: Reports: None Psychiatric History: Reports: None Endocrine/Metabolic History: Reports: Diabetes, Type II, Obesity/BMI 30+ Hematologic History: Reports: None Immunologic History: Reports: None Oncologic (Cancer) History: Reports: None Dermatologic History: Reports: None - Infectious Disease History Infectious Disease History: Reports: Chicken Pox, Measles, Mumps Other Infectious Disease History: states had when a child - Past Surgical History Head Surgeries/Procedures: Reports: None HEENT Surgical History: Reports: None Cardiovascular Surgical History: Reports: None Respiratory Surgical History: Reports: None GI Surgical History: Reports: Colonoscopy, Other (See Below) Male Surgical History: Reports: None, Vasectomy Endocrine Surgical History: Reports: None Neurological Surgical History: Reports: None Musculoskeletal Surgical History: Reports: None Oncologic Surgical History: Reports: None Dermatological Surgical History: Reports: None Social & Family History - Family History Family Medical History: No Pertinent Family History - Caffeine Use Caffeine Use: Reports: None H&P Review of Systems - Review of Systems: Review Of Systems: See Below General: Reports: Fatigue. Denies: Fever, Chills, Weakness HEENT: Denies: Headaches, Sore Throat Pulmonary: Reports: Shortness of Breath, Cough. Denies: Wheezing, Sputum Cardiovascular: Denies: Chest Pain, Palpitations Gastrointestinal: Denies: Abdominal Pain Genitourinary: Denies: Dysuria Skin: Denies: Cyanosis Exam - Exam Exam: See Below - Vital Signs Vital Signs: Last Vital Signs Temp 98.1 F 08/04/21 14:26 Pulse 79 08/04/21 17:00 Resp 18 08/04/21 14:26 BP 136/82 08/04/21 17:00 Pulse Ox 95 08/04/21 17:00 Weight: 235 lb - Exam General: Alert, Oriented, Cooperative HEENT: Mucosa Moist & Breese Neck: Trachea Midline Lungs: Rhonchi Cardiovascular: Regular Rate, Regular Rhythm GI/Abdominal Exam: Normal Bowel Sounds, Soft, Non-Tender Extremities: No: No Pedal Edema - Patient Data Lab Results Last 24 hrs: Laboratory Results - last 24 hr 08/04/21 08/04/21 08/04/21 Range/Units 14:47 14:47 14:47 WBC 11.64 H (4.0-11.0) K/uL RBC 4.93 (4.50-5.90) M/uL Hgb 14.6 (13.0-17.0) g/dL Hct 43.1 (38.0-50.0) % MCV 87.4 (80.0-98.0) fL MCH 29.6 (27.0-32.0) pg MCHC 33.9 (31.0-37.0) g/dL RDW Std Deviation 43.7 (28.0-62.0) fl RDW Coeff of Mary 14 (11.0-15.0) % Plt Count 194 (150-400) K/uL MPV 10.10 (7.40-12.00) fL Neut % (Auto) 79.4 (48.0-80.0) % Lymph % (Auto) 11.9 L (16.0-40.0) % Dyer % (Auto) 7.1 (0.0-15.0) % Eos % (Auto) 1.4 (0.0-7.0) % Baso % (Auto) 0.2 (0.0-1.5) % Neut # (Auto) 9.2 H (1.4-5.7) K/uL Lymph # (Auto) 1.4 (0.6-2.4) K/uL Dyer # (Auto) 0.8 (0.0-0.8) K/uL Eos # (Auto) 0.2 (0.0-0.7) K/uL Baso # (Auto) 0.0 (0.0-0.1) K/uL Nucleated RBC % 0.0 /100WBC Nucleated RBCs # 0 K/uL D-Dimer, Quantitative 0.43 (0.0-0.50) mg/L FEU Sodium (136-148) mmol/L Potassium (3.5-5.1) mmol/L Chloride (98-107) mmol/L Carbon Dioxide (21.0-32.0) mmol/L BUN (7.0-18.0) mg/dL Creatinine (0.8-1.3) mg/dL Est Cr Clr Drug Dosing mL/min Estimated GFR (MDRD) ml/min Glucose (74-106) mg/dL Calcium (8.5-10.1) mg/dL Total Bilirubin (0.2-1.0) mg/dL AST (15-37) IU/L ALT (14-63) IU/L Alkaline Phosphatase (46-116) U/L Troponin I (0.000-0.056) ng/mL B-Natriuretic Peptide (<100) PG/ML Total Protein (6.4-8.2) g/dL Albumin (3.4-5.0) g/dL Globulin (2.6-4.0) g/dL Albumin/Globulin Ratio (0.9-1.6) Influenza Type A RNA NEGATIVE (NEGATIVE) Influenza Type B RNA NEGATIVE (NEGATIVE) SARS-CoV-2 RNA ([place]) NEGATIVE (NEGATIVE) 08/04/21 08/04/21 Range/Units 14:47 14:47 WBC (4.0-11.0) K/uL RBC (4.50-5.90) M/uL Hgb (13.0-17.0) g/dL Hct (38.0-50.0) % MCV (80.0-98.0) fL MCH (27.0-32.0) pg MCHC (31.0-37.0) g/dL RDW Std Deviation (28.0-62.0) fl RDW Coeff of Mary (11.0-15.0) % Plt Count (150-400) K/uL MPV (7.40-12.00) fL Neut % (Auto) (48.0-80.0) % Lymph % (Auto) (16.0-40.0) % Dyer % (Auto) (0.0-15.0) % Eos % (Auto) (0.0-7.0) % Baso % (Auto) (0.0-1.5) % Neut # (Auto) (1.4-5.7) K/uL Lymph # (Auto) (0.6-2.4) K/uL Dyer # (Auto) (0.0-0.8) K/uL Eos # (Auto) (0.0-0.7) K/uL Baso # (Auto) (0.0-0.1) K/uL Nucleated RBC % /100WBC Nucleated RBCs # K/uL D-Dimer, Quantitative (0.0-0.50) mg/L FEU Sodium 142 (136-148) mmol/L Potassium 4.1 (3.5-5.1) mmol/L Chloride 105 (98-107) mmol/L Carbon Dioxide 29.5 (21.0-32.0) mmol/L BUN 18 (7.0-18.0) mg/dL Creatinine 1.0 (0.8-1.3) mg/dL Est Cr Clr Drug Dosing 67.45 mL/min Estimated GFR (MDRD) > 60.0 ml/min Glucose 128 H (74-106) mg/dL Calcium 8.6 (8.5-10.1) mg/dL Total Bilirubin 0.3 (0.2-1.0) mg/dL AST 12 L (15-37) IU/L ALT 23 (14-63) IU/L Alkaline Phosphatase 65 (46-116) U/L Troponin I < 0.050 (0.000-0.056) ng/mL B-Natriuretic Peptide 21 (<100) PG/ML Total Protein 6.7 (6.4-8.2) g/dL Albumin 3.5 (3.4-5.0) g/dL Globulin 3.2 (2.6-4.0) g/dL Albumin/Globulin Ratio 1.1 (0.9-1.6) Influenza Type A RNA (NEGATIVE) Influenza Type B RNA (NEGATIVE) SARS-CoV-2 RNA ([place]) (NEGATIVE) Result Diagrams: 08/04/21 14:47 08/04/21 14:47 Sepsis Event Note - Evaluation Sepsis Screening Result: No Definite Risk - Focused Exam Vital Signs: Vital Signs Temp Pulse Resp BP Pulse Ox 08/04/21 17:00 79 136/82 95 08/04/21 14:26 98.1 F 81 18 135/81 85 L - Problem List (1) URI (upper respiratory infection) SNOMED Code(s): 26638559 ICD Code: J06.9 - ACUTE UPPER RESPIRATORY INFECTION, UNSPECIFIED Status: Acute Current Visit: Yes (2) Hypoxia SNOMED Code(s): 919810951 ICD Code: R09.02 - HYPOXEMIA Status: Acute Current Visit: Yes (3) Diabetes mellitus SNOMED Code(s): 98286658 ICD Code: E11.9 - TYPE 2 DIABETES MELLITUS WITHOUT COMPLICATIONS Status: Acute Current Visit: Yes (4) HTN (hypertension) SNOMED Code(s): 99187667 ICD Code: I10 - ESSENTIAL (PRIMARY) HYPERTENSION Status: Acute Current Visit: Yes Problem List Initiated/Reviewed/Updated: Yes Orders Last 24hrs: Active Orders 24 hr Category Date Time Status Admission Status [Patient Status] [ADT] Stat ADT 08/04/21 15:50 Active Accu Check [Blood Glucose Check, Bedside] [] TIDMEALS Care 08/04/21 17:06 Ordered Blood Glucose Check, Bedside [] TIDAC Care 08/04/21 17:06 Ordered Oxygen Therapy Adult [Oxygen Therapy, ED] [] Care 08/04/21 14:34 Active ASDIRECTED [employer] Diet [DIET] Diet 08/04/21 Dinner Ordered CBC WITH AUTO DIFF [HEME] AM Lab 08/05/21 05:11 Ordered CBC WITH AUTO DIFF [HEME] AM Lab 08/06/21 05:11 Ordered CBC WITH AUTO DIFF [HEME] AM Lab 08/07/21 05:11 Ordered CMP [COMPREHENSIVE METABOLIC PN,CMP] [CHEM] AM Lab 08/05/21 05:11 Ordered CMP [COMPREHENSIVE METABOLIC PN,CMP] [CHEM] AM Lab 08/06/21 05:11 Ordered CMP [COMPREHENSIVE METABOLIC PN,CMP] [CHEM] AM Lab 08/07/21 05:11 Ordered Azithromycin [Zithromax] 500 mg Med 08/04/21 17:15 Ordered Sodium Chloride 0.9% [Normal Saline AdvBag] 250 ml IV DAILY Dextrose 50% in Water Med 08/04/21 17:06 Ordered 50 ml IVPUSH ASDIRECTED PRN Enoxaparin [Lovenox] Med 08/04/21 17:15 Ordered 40 mg SUBCUT Q24H Glucagon,Human Recombinant [GlucaGen] Med 08/04/21 17:06 Ordered 1 mg IM ASDIRECTED PRN Insulin Aspart [NovoLOG] Med 08/05/21 07:30 Ordered See Protocol SUBCUT TIDAC Pantoprazole [ProTONIX] Med 08/05/21 09:00 Ordered 40 mg PO DAILY Sodium Chloride 0.9% [Saline Flush] Med 08/04/21 14:37 Active 10 ml FLUSH ASDIRECTED PRN Sodium Chloride 0.9% [Saline Flush] Med 08/04/21 14:37 Active 2.5 ml FLUSH ASDIRECTED PRN cefTRIAXone [Rocephin in Dextrose,Iso-Osm 2 GM/50 ML] 2 Med 08/04/21 17:15 Ordered gm Premix Bag 1 bag IV Q24H hydroCHLOROthiazide Med 08/05/21 09:00 Ordered 25 mg PO DAILY Saline Lock Insert [OM.PC] Stat Oth 08/04/21 14:37 Ordered Code Status [Resuscitation Status] Routine Resus Stat 08/04/21 17:00 Ordered Medication Orders Dextrose/Water (50% Dextrose In Water 50 Ml Syringe) 50 ml IVPUSH ASDIRECTED PRN PRN Reason: Hypoglycemia Enoxaparin Sodium (Enoxaparin 40 Mg/0.4 Ml Syringe) 40 mg SUBCUT Q24H KEKE Glucagon (Glucagon,Human Recombinant 1 Mg Vial) 1 mg IM ASDIRECTED PRN PRN Reason: Hypoglycemia Hydrochlorothiazide (Hydrochlorothiazide 25 Mg Tab) 25 mg PO DAILY KEKE Ceftriaxone Sodium/Dextrose 2 (gm/ Premix) 50 mls @ 100 mls/hr IV Q24H KEKE Azithromycin 500 mg/ Sodium (Chloride) 250 mls @ 250 mls/hr IV DAILY ON LICENSE OF [facility] Insulin Aspart (Insulin Aspart 100 Units/Ml 3 Ml Pen) 0 unit SUBCUT TIDAC KEKE; Protocol Pantoprazole Sodium (Pantoprazole 40 Mg Tab.Cr) 40 mg PO DAILY KEKE Sodium Chloride (Sodium Chloride 0.9% 10 Ml Syringe) 10 ml FLUSH ASDIRECTED PRN PRN Reason: Keep Vein Open Last Admin: 08/04/21 16:25 Dose: 10 ml Documented by: ALON Sodium Chloride (Sodium Chloride 0.9% 2.5 Ml Syringe) 2.5 ml FLUSH ASDIRECTED PRN PRN Reason: Keep Vein Open Last Admin: 08/04/21 16:24 Dose: 2.5 ml Documented by: ALON Assessment/Plan Comment:: Admit the patient to the medical floor, vitals per unit routine, activity up ad gisele., diabetic diet, DVT prophylaxis with Lovenox 40 mg subcutaneously once a day, GI prophylaxis with oral pantoprazole 40 mg once a day, the patient is full code 1. Hypoxia secondary to upper respiratory tract infection -The patient was given Rocephin while in the emergency department once, we will continue with ceftriaxone 2 g per IV route every 24 hours -Initiate azithromycin 500 mg per IV route every 24 hours -Supply oxygen as needed -Daily CBC/CMP 2. Diabetes mellitus -Accu-Cheks/NovoLog/insulin sliding scale -Patient is on the ADA diabetic diet 3. Hypertension -Continue patient's hydrochlorothiazide -Monitor vitals and treat accordingly
[2021-08-04] MEDS ORDERED: Albuterol/Ipratropium 3.0-0.5 MG/3 ML Neb Soln NEB PRN (17:27)
[2021-08-04] MEDS: Azithromycin 500 MG in Sodium Chloride 0.9% 250 ML IV SCH (19:50)
[2021-08-05 06:12] LABS: BLOOD UREA NITROGEN,BUN 18 mg/dL (7.0-18.0); CHLORIDE,CL 103 mmol/L (98-107); GLUCOSE RANDOM 242 mg/dL (74-106); POTASSIUM,K 4.9 mmol/L (3.5-5.1); SODIUM,NA 141 mmol/L (136-148)
[2021-08-05] MEDS ORDERED: Insulin Aspart 100 Units/ML 3 ML Pen SUBCUT SCH (07:30)
[2021-08-05] MEDS: Azithromycin 500 MG in Sodium Chloride 0.9% 250 ML IV SCH (08:18)
[2021-08-05] MEDS ORDERED: Hydrochlorothiazide 25 MG Tab PO SCH (09:00)
[2021-08-05] MEDS ORDERED: Insulin Glargine,Human Rec. Analog 100 Units/ML 3 ML Pen SUBCUT SCH (09:00)
[2021-08-05] MEDS ORDERED: Pantoprazole 40 MG Tab.CR PO SCH (09:00)
[2021-08-05 09:09] VITALS: BP 120/71; PULSE 92
--- NOTE | 2021-08-05 09:43 | PCM.DCSUM1 ---
<Sirena White - Last Filed: 08/05/21 09:38> Discharge Summary - Hospital Course Free Text/Narrative:: The patient is a 70-year-old male, on day 2 during the patient's hospital stay of service, with a significant past medical history of hypertension and diabetes type 2, who was admitted to the medical floor due to hypoxia secondary to upper respiratory tract infection. He was treated with a variety of antibiotics for his upper respiratory tract infection including IV ceftriaxone and IV azithromycin. He was also supplied with duo nebulizer treatments in order to alleviate his shortness of breath. Upon interview with the patient today, he admits that his shortness of breath has subsided, he has no cough, and feels great. As a result we will send the patient home with oral azithromycin to fully eradicate his URI, and will also supply him with an albuterol inhaler to use for whenever he is short of breath. The patient has been advised to return to the hospital if he has increasing respiratory difficulty, shortness of breath, chest pain, and/or palpitations. He has also been educated on being compliant with his medication and taking them at scheduled times. Lastly, he has been counseled to follow-up with his primary care provider in order to have a medication review and to adhere to his diabetic diet. The patient is now stable and can be discharged home safely. - Discharge Data Discharge Date: 08/05/21 Discharge Disposition: Home, Self-Care 01 Condition: Stable - Referral to Home Health Primary Care Physician: Jose Luis Lema MD - Discharge Diagnosis/Problem(s) (1) URI (upper respiratory infection) SNOMED Code(s): 45451171 ICD Code: J06.9 - ACUTE UPPER RESPIRATORY INFECTION, UNSPECIFIED Status: Acute Current Visit: Yes Qualifiers: URI type: unspecified URI Qualified Code(s): J06.9 - Acute upper respiratory infection, unspecified (2) Hypoxia SNOMED Code(s): 431813688 ICD Code: R09.02 - HYPOXEMIA Status: Acute Current Visit: Yes (3) Diabetes mellitus SNOMED Code(s): 21796985 ICD Code: E11.9 - TYPE 2 DIABETES MELLITUS WITHOUT COMPLICATIONS Status: Acute Current Visit: Yes (4) HTN (hypertension) SNOMED Code(s): 99981600 ICD Code: I10 - ESSENTIAL (PRIMARY) HYPERTENSION Status: Acute Current Visit: Yes - Patient Instructions Diet: Diabetic Diet Activity: As Tolerated Showering/Bathing: May Shower Other/Special Instructions: -Return to the hospital if you have increasing respiratory difficulty, shortness of breath, chest pain, and/or palpitations. - Be compliant with your medication and take it at scheduled times. -Follow-up with your PCP - Discharge Plan Prescriptions/Med Rec: Albuterol Sulfate [Albuterol Sulfate Hfa] 8.5 gm IH Q6H #1 hfa.aer.ad Azithromycin 500 mg PO DAILY #6 tablet Home Medications: Home Meds Hydrochlorothiazide 25 mg PO DAILY 11/20/16 [History] Losartan Potassium 50 mg PO DAILY 11/20/16 [History] Tresiba Flextouch 20 units SUBCUT BID 11/20/16 [History] Insulin Aspart [NovoLOG] 20 unit SUBCUT TID 06/13/20 [History] Albuterol Sulfate [Albuterol Sulfate Hfa] 8.5 gm IH Q6H #1 hfa.aer.ad 08/05/21 [Rx] Azithromycin 500 mg PO DAILY #6 tablet 08/05/21 [Rx] Patient Handouts: Albuterol inhalation aerosol, Azithromycin tablets, Upper Respiratory Infection, Adult, [id number] Referrals: Jose Luis Lema MD [Primary Care Provider] - 08/15/21 10:45 am (Please arrive 15 minutes early with your ID and wearing a face covering.) - Discharge Summary/Plan Comment DC Time >30 min.: Yes Total # of Minutes for Discharge Time: 35 minutes - Review of Systems General: Denies: Fever, Weakness, Fatigue HEENT: Denies: Headaches, Sore Throat Pulmonary: Denies: Shortness of Breath, Cough, Sputum Cardiovascular: Denies: Chest Pain, Palpitations Gastrointestinal: Denies: Abdominal Pain Genitourinary: Denies: Dysuria - Patient Data Vitals - Most Recent: Last Vital Signs Temp 96.6 F L 08/05/21 08:00 Pulse 92 08/05/21 08:00 Resp 20 08/05/21 08:00 BP 120/71 08/05/21 08:00 Pulse Ox 95 08/05/21 08:00 Weight - Most Recent: 249 lb 6.4 oz I&O - Last 24 hours: Intake & Output 08/04/21 08/05/2108/05/21 22:59 06:59 14:59 Intake Total 500 Balance 500 Lab Results - Last 24 hrs: Laboratory Results - last 24 hr 08/04/21 08/04/21 08/04/21 Range/Units 14:47 14:47 14:47 WBC 11.64 H (4.0-11.0) K/uL RBC 4.93 (4.50-5.90) M/uL Hgb 14.6 (13.0-17.0) g/dL Hct 43.1 (38.0-50.0) % MCV 87.4 (80.0-98.0) fL MCH 29.6 (27.0-32.0) pg MCHC 33.9 (31.0-37.0) g/dL RDW Std Deviation 43.7 (28.0-62.0) fl RDW Coeff of Mary 14 (11.0-15.0) % Plt Count 194 (150-400) K/uL MPV 10.10 (7.40-12.00) fL Neut % (Auto) 79.4 (48.0-80.0) % Lymph % (Auto) 11.9 L (16.0-40.0) % [place] % (Auto) 7.1 (0.0-15.0) % Eos % (Auto) 1.4 (0.0-7.0) % Baso % (Auto) 0.2 (0.0-1.5) % Neut # (Auto) 9.2 H (1.4-5.7) K/uL Lymph # (Auto) 1.4 (0.6-2.4) K/uL [place] # (Auto) 0.8 (0.0-0.8) K/uL Eos # (Auto) 0.2 (0.0-0.7) K/uL Baso # (Auto) 0.0 (0.0-0.1) K/uL Nucleated RBC % 0.0 /100WBC Nucleated RBCs # 0 K/uL D-Dimer, Quantitative 0.43 (0.0-0.50) mg/L FEU Sodium (136-148) mmol/L Potassium (3.5-5.1) mmol/L Chloride (98-107) mmol/L Carbon Dioxide (21.0-32.0) mmol/L BUN (7.0-18.0) mg/dL Creatinine (0.8-1.3) mg/dL Est Cr Clr Drug Dosing mL/min Estimated GFR (MDRD) ml/min Glucose (74-106) mg/dL POC Glucose (70-99) mg/dL Calcium (8.5-10.1) mg/dL Total Bilirubin (0.2-1.0) mg/dL AST (15-37) IU/L ALT (14-63) IU/L Alkaline Phosphatase (46-116) U/L Troponin I (0.000-0.056) ng/mL B-Natriuretic Peptide (<100) PG/ML Total Protein (6.4-8.2) g/dL Albumin (3.4-5.0) g/dL Globulin (2.6-4.0) g/dL Albumin/Globulin Ratio (0.9-1.6) Influenza Type A RNA NEGATIVE (NEGATIVE) Influenza Type B RNA NEGATIVE (NEGATIVE) SARS-CoV-2 RNA ([place]) NEGATIVE (NEGATIVE) 08/04/21 08/04/21 08/04/21 Range/Units 14:47 14:47 18:22 WBC (4.0-11.0) K/uL RBC (4.50-5.90) M/uL Hgb (13.0-17.0) g/dL Hct (38.0-50.0) % MCV (80.0-98.0) fL MCH (27.0-32.0) pg MCHC (31.0-37.0) g/dL RDW Std Deviation (28.0-62.0) fl RDW Coeff of Mary (11.0-15.0) % Plt Count (150-400) K/uL MPV (7.40-12.00) fL Neut % (Auto) (48.0-80.0) % Lymph % (Auto) (16.0-40.0) % [place] % (Auto) (0.0-15.0) % Eos % (Auto) (0.0-7.0) % Baso % (Auto) (0.0-1.5) % Neut # (Auto) (1.4-5.7) K/uL Lymph # (Auto) (0.6-2.4) K/uL [place] # (Auto) (0.0-0.8) K/uL Eos # (Auto) (0.0-0.7) K/uL Baso # (Auto) (0.0-0.1) K/uL Nucleated RBC % /100WBC Nucleated RBCs # K/uL D-Dimer, Quantitative (0.0-0.50) mg/L FEU Sodium 142 (136-148) mmol/L Potassium 4.1 (3.5-5.1) mmol/L Chloride 105 (98-107) mmol/L Carbon Dioxide 29.5 (21.0-32.0) mmol/L BUN 18 (7.0-18.0) mg/dL Creatinine 1.0 (0.8-1.3) mg/dL Est Cr Clr Drug Dosing 67.45 mL/min Estimated GFR (MDRD) > 60.0 ml/min Glucose 128 H (74-106) mg/dL POC Glucose 120 H (70-99) mg/dL Calcium 8.6 (8.5-10.1) mg/dL Total Bilirubin 0.3 (0.2-1.0) mg/dL AST 12 L (15-37) IU/L ALT 23 (14-63) IU/L Alkaline Phosphatase 65 (46-116) U/L Troponin I < 0.050 (0.000-0.056) ng/mL B-Natriuretic Peptide 21 (<100) PG/ML Total Protein 6.7 (6.4-8.2) g/dL Albumin 3.5 (3.4-5.0) g/dL Globulin 3.2 (2.6-4.0) g/dL Albumin/Globulin Ratio 1.1 (0.9-1.6) Influenza Type A RNA (NEGATIVE) Influenza Type B RNA (NEGATIVE) SARS-CoV-2 RNA ([place]) (NEGATIVE) 08/04/21 08/05/21 08/05/21 Range/Units 20:54 05:20 05:20 WBC 9.09 (4.0-11.0) K/uL RBC 5.27 (4.50-5.90) M/uL Hgb 15.6 (13.0-17.0) g/dL Hct 45.6 (38.0-50.0) % MCV 86.5 (80.0-98.0) fL MCH 29.6 (27.0-32.0) pg MCHC 34.2 (31.0-37.0) g/dL RDW Std Deviation 42.8 (28.0-62.0) fl RDW Coeff of Mary 14 (11.0-15.0) % Plt Count 218 (150-400) K/uL MPV 10.60 (7.40-12.00) fL Neut % (Auto) 88.8 H (48.0-80.0) % Lymph % (Auto) 9.4 L (16.0-40.0) % [place] % (Auto) 1.7 (0.0-15.0) % Eos % (Auto) 0.0 (0.0-7.0) % Baso % (Auto) 0.1 (0.0-1.5) % Neut # (Auto) 8.1 H (1.4-5.7) K/uL Lymph # (Auto) 0.9 (0.6-2.4) K/uL [place] # (Auto) 0.2 (0.0-0.8) K/uL Eos # (Auto) 0.0 (0.0-0.7) K/uL Baso # (Auto) 0.0 (0.0-0.1) K/uL Nucleated RBC % 0.0 /100WBC Nucleated RBCs # 0 K/uL D-Dimer, Quantitative (0.0-0.50) mg/L FEU Sodium 141 (136-148) mmol/L Potassium 4.9 (3.5-5.1) mmol/L Chloride 103 (98-107) mmol/L Carbon Dioxide 29.0 (21.0-32.0) mmol/L BUN 18 (7.0-18.0) mg/dL Creatinine 1.0 (0.8-1.3) mg/dL Est Cr Clr Drug Dosing 67.45 mL/min Estimated GFR (MDRD) > 60.0 ml/min Glucose 242 H (74-106) mg/dL POC Glucose 236 H (70-99) mg/dL Calcium 8.2 L (8.5-10.1) mg/dL Total Bilirubin 0.5 (0.2-1.0) mg/dL AST 16 (15-37) IU/L ALT 26 (14-63) IU/L Alkaline Phosphatase 61 (46-116) U/L Troponin I (0.000-0.056) ng/mL B-Natriuretic Peptide (<100) PG/ML Total Protein 6.8 (6.4-8.2) g/dL Albumin 3.5 (3.4-5.0) g/dL Globulin 3.3 (2.6-4.0) g/dL Albumin/Globulin Ratio 1.1 (0.9-1.6) Influenza Type A RNA (NEGATIVE) Influenza Type B RNA (NEGATIVE) SARS-CoV-2 RNA ([place]) (NEGATIVE) 08/05/21 Range/Units 06:50 WBC (4.0-11.0) K/uL RBC (4.50-5.90) M/uL Hgb (13.0-17.0) g/dL Hct (38.0-50.0) % MCV (80.0-98.0) fL MCH (27.0-32.0) pg MCHC (31.0-37.0) g/dL RDW Std Deviation (28.0-62.0) fl RDW Coeff of Mary (11.0-15.0) % Plt Count (150-400) K/uL MPV (7.40-12.00) fL Neut % (Auto) (48.0-80.0) % Lymph % (Auto) (16.0-40.0) % [place] % (Auto) (0.0-15.0) % Eos % (Auto) (0.0-7.0) % Baso % (Auto) (0.0-1.5) % Neut # (Auto) (1.4-5.7) K/uL Lymph # (Auto) (0.6-2.4) K/uL [place] # (Auto) (0.0-0.8) K/uL Eos # (Auto) (0.0-0.7) K/uL Baso # (Auto) (0.0-0.1) K/uL Nucleated RBC % /100WBC Nucleated RBCs # K/uL D-Dimer, Quantitative (0.0-0.50) mg/L FEU Sodium (136-148) mmol/L Potassium (3.5-5.1) mmol/L Chloride (98-107) mmol/L Carbon Dioxide (21.0-32.0) mmol/L BUN (7.0-18.0) mg/dL Creatinine (0.8-1.3) mg/dL Est Cr Clr Drug Dosing mL/min Estimated GFR (MDRD) ml/min Glucose (74-106) mg/dL POC Glucose 240 H (70-99) mg/dL Calcium (8.5-10.1) mg/dL Total Bilirubin (0.2-1.0) mg/dL AST (15-37) IU/L ALT (14-63) IU/L Alkaline Phosphatase (46-116) U/L Troponin I (0.000-0.056) ng/mL B-Natriuretic Peptide (<100) PG/ML Total Protein (6.4-8.2) g/dL Albumin (3.4-5.0) g/dL Globulin (2.6-4.0) g/dL Albumin/Globulin Ratio (0.9-1.6) Influenza Type A RNA (NEGATIVE) Influenza Type B RNA (NEGATIVE) SARS-CoV-2 RNA ([place]) (NEGATIVE) Med Orders - Current: Current Medications Albuterol/Ipratropium (Albuterol/Ipratropium 3.0-0.5 Mg/3 Ml Neb Soln) 3 ml NEB Q4HRRT PRN PRN Reason: Shortness of Breath Dextrose/Water (50% Dextrose In Water 50 Ml Syringe) 50 ml IVPUSH ASDIRECTED PRN PRN Reason: Hypoglycemia Dextrose/Water (50% Dextrose In Water 50 Ml Syringe) 50 ml IVPUSH ASDIRECTED PRN PRN Reason: Hypoglycemia Enoxaparin Sodium (Enoxaparin 40 Mg/0.4 Ml Syringe) 40 mg SUBCUT Q24H [facility] Last Admin: 08/04/21 19:50 Dose: 40 mg Documented by: Glucagon (Glucagon,Human Recombinant 1 Mg Vial) 1 mg IM ASDIRECTED PRN PRN Reason: Hypoglycemia Glucagon (Glucagon,Human Recombinant 1 Mg Vial) 1 mg IM ASDIRECTED PRN PRN Reason: Hypoglycemia Hydrochlorothiazide (Hydrochlorothiazide 25 Mg Tab) 25 mg PO DAILY [facility] Last Admin: 08/05/21 08:17 Dose: 25 mg Documented by: Ceftriaxone Sodium/Dextrose 2 (gm/ Premix) 50 mls @ 100 mls/hr IV Q24H [facility] Last Admin: 08/04/21 19:31 Dose: Not Given Documented by: Azithromycin 500 mg/ Sodium (Chloride) 250 mls @ 250 mls/hr IV DAILY [facility] Last Admin: 08/05/21 08:18 Dose: 250 mls/hr Documented by: Insulin Aspart (Insulin Aspart 100 Units/Ml 3 Ml Pen) 0 unit SUBCUT TIDAC [facility]; Protocol Last Admin: 08/05/21 08:17 Dose: 2 unit Documented by: Insulin Glargine (Insulin Glargine,Human Rec. Analog 100 Units/Ml 3 Ml Pen) 20 units SUBCUT DAILY [facility] Last Admin: 08/05/21 08:18 Dose: 20 unit Documented by: Pantoprazole Sodium (Pantoprazole 40 Mg Tab.Cr) 40 mg PO DAILY [facility] Last Admin: 08/05/21 08:18 Dose: 40 mg Documented by: Sodium Chloride (Sodium Chloride 0.9% 10 Ml Syringe) 10 ml FLUSH ASDIRECTED PRN PRN Reason: Keep Vein Open Last Admin: 08/04/21 16:25 Dose: 10 ml Documented by: Sodium Chloride (Sodium Chloride 0.9% 2.5 Ml Syringe) 2.5 ml FLUSH ASDIRECTED PRN PRN Reason: Keep Vein Open Last Admin: 08/04/21 16:24 Dose: 2.5 ml Documented by: Discontinued Medications Ceftriaxone Sodium/Dextrose 1 (gm/ Premix) 50 mls @ 100 mls/hr IV ONETIME ONE Stop: 08/04/21 16:15 Last Admin: 08/04/21 16:24 Dose: 100 mls/hr Documented by: Methylprednisolone Sodium Succinate (Methylprednisolone Sodium Succinate 125 Mg/2 Ml Sdv) 125 mg IVPUSH ONETIME ONE Stop: 08/04/21 15:46 Last Admin: 08/04/21 16:24 Dose: 125 mg Documented by: - Exam General: Reports: Alert, Oriented, Cooperative HEENT: Reports: Mucous Membr. Moist/[place] Neck: Reports: Trachea Midline Lungs: Reports: Clear to Auscultation, Normal Respiratory Effort Cardiovascular: Reports: Regular Rate, Regular Rhythm GI/Abdominal Exam: Normal Bowel Sounds, Soft, Non-Tender <Loyd Choi - Last Filed: 08/05/21 11:59> Discharge Summary - Hospital Course Free Text/Narrative:: Pt was seen and evaluated. I agree with the above assessment and plan Will DC pt with Zithromax, inhalor and an incentive spirometer. F/ up with PCP in 1-2 wks for an out pt sleep study. Pt was advised to reduce his caloric intake to a half of what he has been eating. Physical exam on discharge date: General: Obese male. In no acute distress. Sitting in a chair. CVS: S1S2 appreciated. RRR Lungs: diminished bilaterally. No rales or wheezes PA: Obese, soft, non tender. Bowel sounds present ext: no clubbing, cyanosis or edema neuro: no focal deficits. psych: stable mood and affect. - Referral to Home Health Primary Care Physician: Jose Luis Lema MD - Patient Data Vitals - Most Recent: Last Vital Signs Temp 96.6 F L 08/05/21 08:00 Pulse 92 08/05/21 08:00 Resp 20 08/05/21 08:00 BP 120/71 08/05/21 08:00 Pulse Ox 95 08/05/21 08:00 I&O - Last 24 hours: Intake & Output 08/04/21 08/05/21 08/05/21 22:59 06:59 14:59 Intake Total 500 Balance 500 Lab Results - Last 24 hrs: Laboratory Results - last 24 hr 08/04/21 08/04/21 08/04/21 Range/Units 14:47 14:47 14:47 WBC 11.64 H (4.0-11.0) K/uL RBC 4.93 (4.50-5.90) M/uL Hgb 14.6 (13.0-17.0) g/dL Hct 43.1 (38.0-50.0) % MCV 87.4 (80.0-98.0) fL MCH 29.6 (27.0-32.0) pg MCHC 33.9 (31.0-37.0) g/dL RDW Std Deviation 43.7 (28.0-62.0) fl RDW Coeff of Mary 14 (11.0-15.0) % Plt Count 194 (150-400) K/uL MPV 10.10 (7.40-12.00) fL Neut % (Auto) 79.4 (48.0-80.0) % Lymph % (Auto) 11.9 L (16.0-40.0) % [place] % (Auto) 7.1 (0.0-15.0) % Eos % (Auto) 1.4 (0.0-7.0) % Baso % (Auto) 0.2 (0.0-1.5) % Neut # (Auto) 9.2 H (1.4-5.7) K/uL Lymph # (Auto) 1.4 (0.6-2.4) K/uL [place] # (Auto) 0.8 (0.0-0.8) K/uL Eos # (Auto) 0.2 (0.0-0.7) K/uL Baso # (Auto) 0.0 (0.0-0.1) K/uL Nucleated RBC % 0.0 /100WBC Nucleated RBCs # 0 K/uL D-Dimer, Quantitative 0.43 (0.0-0.50) mg/L FEU Sodium (136-148) mmol/L Potassium (3.5-5.1) mmol/L Chloride (98-107) mmol/L Carbon Dioxide (21.0-32.0) mmol/L BUN (7.0-18.0) mg/dL Creatinine (0.8-1.3) mg/dL Est Cr Clr Drug Dosing mL/min Estimated GFR (MDRD) ml/min Glucose (74-106) mg/dL POC Glucose (70-99) mg/dL Calcium (8.5-10.1) mg/dL Total Bilirubin (0.2-1.0) mg/dL AST (15-37) IU/L ALT (14-63) IU/L Alkaline Phosphatase (46-116) U/L Troponin I (0.000-0.056) ng/mL B-Natriuretic Peptide (<100) PG/ML Total Protein (6.4-8.2) g/dL Albumin (3.4-5.0) g/dL Globulin (2.6-4.0) g/dL Albumin/Globulin Ratio (0.9-1.6) Influenza Type A RNA NEGATIVE (NEGATIVE) Influenza Type B RNA NEGATIVE (NEGATIVE) SARS-CoV-2 RNA ([place]) NEGATIVE (NEGATIVE) 08/04/21 08/04/21 08/04/21 Range/Units 14:47 14:47 18:22 WBC (4.0-11.0) K/uL RBC (4.50-5.90) M/uL Hgb (13.0-17.0) g/dL Hct (38.0-50.0) % MCV (80.0-98.0) fL MCH (27.0-32.0) pg MCHC (31.0-37.0) g/dL RDW Std Deviation (28.0-62.0) fl RDW Coeff of Mary (11.0-15.0) % Plt Count (150-400) K/uL MPV (7.40-12.00) fL Neut % (Auto) (48.0-80.0) % Lymph % (Auto) (16.0-40.0) % [place] % (Auto) (0.0-15.0) % Eos % (Auto) (0.0-7.0) % Baso % (Auto) (0.0-1.5) % Neut # (Auto) (1.4-5.7) K/uL Lymph # (Auto) (0.6-2.4) K/uL [place] # (Auto) (0.0-0.8) K/uL Eos # (Auto) (0.0-0.7) K/uL Baso # (Auto) (0.0-0.1) K/uL Nucleated RBC % /100WBC Nucleated RBCs # K/uL D-Dimer, Quantitative (0.0-0.50) mg/L FEU Sodium 142 (136-148) mmol/L Potassium 4.1 (3.5-5.1) mmol/L Chloride 105 (98-107) mmol/L Carbon Dioxide 29.5 (21.0-32.0) mmol/L BUN 18 (7.0-18.0) mg/dL Creatinine 1.0 (0.8-1.3) mg/dL Est Cr Clr Drug Dosing 67.45 mL/min Estimated GFR (MDRD) > 60.0 ml/min Glucose 128 H (74-106) mg/dL POC Glucose 120 H (70-99) mg/dL Calcium 8.6 (8.5-10.1) mg/dL Total Bilirubin 0.3 (0.2-1.0) mg/dL AST 12 L (15-37) IU/L ALT 23 (14-63) IU/L Alkaline Phosphatase 65 (46-116) U/L Troponin I < 0.050 (0.000-0.056) ng/mL B-Natriuretic Peptide 21 (<100) PG/ML Total Protein 6.7 (6.4-8.2) g/dL Albumin 3.5 (3.4-5.0) g/dL Globulin 3.2 (2.6-4.0) g/dL Albumin/Globulin Ratio 1.1 (0.9-1.6) Influenza Type A RNA (NEGATIVE) Influenza Type B RNA (NEGATIVE) SARS-CoV-2 RNA ([place]) (NEGATIVE) 08/04/21 08/05/21 08/05/21 Range/Units 20:54 05:20 05:20 WBC 9.09 (4.0-11.0) K/uL RBC 5.27 (4.50-5.90) M/uL Hgb 15.6 (13.0-17.0) g/dL Hct 45.6 (38.0-50.0) % MCV 86.5 (80.0-98.0) fL MCH 29.6 (27.0-32.0) pg MCHC 34.2 (31.0-37.0) g/dL RDW Std Deviation 42.8 (28.0-62.0) fl RDW Coeff of Mary 14 (11.0-15.0) % Plt Count 218 (150-400) K/uL MPV 10.60 (7.40-12.00) fL Neut % (Auto) 88.8 H (48.0-80.0) % Lymph % (Auto) 9.4 L (16.0-40.0) % [place] % (Auto) 1.7 (0.0-15.0) % Eos % (Auto) 0.0 (0.0-7.0) % Baso % (Auto) 0.1 (0.0-1.5) % Neut # (Auto) 8.1 H (1.4-5.7) K/uL Lymph # (Auto) 0.9 (0.6-2.4) K/uL [place] # (Auto) 0.2 (0.0-0.8) K/uL Eos # (Auto) 0.0 (0.0-0.7) K/uL Baso # (Auto) 0.0 (0.0-0.1) K/uL Nucleated RBC % 0.0 /100WBC Nucleated RBCs # 0 K/uL D-Dimer, Quantitative (0.0-0.50) mg/L FEU Sodium 141 (136-148) mmol/L Potassium 4.9 (3.5-5.1) mmol/L Chloride 103 (98-107) mmol/L Carbon Dioxide 29.0 (21.0-32.0) mmol/L BUN 18 (7.0-18.0) mg/dL Creatinine 1.0 (0.8-1.3) mg/dL Est Cr Clr Drug Dosing 67.45 mL/min Estimated GFR (MDRD) > 60.0 ml/min Glucose 242 H (74-106) mg/dL POC Glucose 236 H (70-99) mg/dL Calcium 8.2 L (8.5-10.1) mg/dL Total Bilirubin 0.5 (0.2-1.0) mg/dL AST 16 (15-37) IU/L ALT 26 (14-63) IU/L Alkaline Phosphatase 61 (46-116) U/L Troponin I (0.000-0.056) ng/mL B-Natriuretic Peptide (<100) PG/ML Total Protein 6.8 (6.4-8.2) g/dL Albumin 3.5 (3.4-5.0) g/dL Globulin 3.3 (2.6-4.0) g/dL Albumin/Globulin Ratio 1.1 (0.9-1.6) Influenza Type A RNA (NEGATIVE) Influenza Type B RNA (NEGATIVE) SARS-CoV-2 RNA ([place]) (NEGATIVE) 08/05/21 Range/Units 06:50 WBC (4.0-11.0) K/uL RBC (4.50-5.90) M/uL Hgb (13.0-17.0) g/dL Hct (38.0-50.0) % MCV (80.0-98.0) fL MCH (27.0-32.0) pg MCHC (31.0-37.0) g/dL RDW Std Deviation (28.0-62.0) fl RDW Coeff of Mary (11.0-15.0) % Plt Count (150-400) K/uL MPV (7.40-12.00) fL Neut % (Auto) (48.0-80.0) % Lymph % (Auto) (16.0-40.0) % [place] % (Auto) (0.0-15.0) % Eos % (Auto) (0.0-7.0) % Baso % (Auto) (0.0-1.5) % Neut # (Auto) (1.4-5.7) K/uL Lymph # (Auto) (0.6-2.4) K/uL [place] # (Auto) (0.0-0.8) K/uL Eos # (Auto) (0.0-0.7) K/uL Baso # (Auto) (0.0-0.1) K/uL Nucleated RBC % /100WBC Nucleated RBCs # K/uL D-Dimer, Quantitative (0.0-0.50) mg/L FEU Sodium (136-148) mmol/L Potassium (3.5-5.1) mmol/L Chloride (98-107) mmol/L Carbon Dioxide (21.0-32.0) mmol/L BUN (7.0-18.0) mg/dL Creatinine (0.8-1.3) mg/dL Est Cr Clr Drug Dosing mL/min Estimated GFR (MDRD) ml/min Glucose (74-106) mg/dL POC Glucose 240 H (70-99) mg/dL Calcium (8.5-10.1) mg/dL Total Bilirubin (0.2-1.0) mg/dL AST (15-37) IU/L ALT (14-63) IU/L Alkaline Phosphatase (46-116) U/L Troponin I (0.000-0.056) ng/mL B-Natriuretic Peptide (<100) PG/ML Total Protein (6.4-8.2) g/dL Albumin (3.4-5.0) g/dL Globulin (2.6-4.0) g/dL Albumin/Globulin Ratio (0.9-1.6) Influenza Type A RNA (NEGATIVE) Influenza Type B RNA (NEGATIVE) SARS-CoV-2 RNA ([place]) (NEGATIVE) Med Orders - Current: Current Medications Albuterol/Ipratropium (Albuterol/Ipratropium 3.0-0.5 Mg/3 Ml Neb Soln) 3 ml NEB Q4HRRT PRN PRN Reason: Shortness of Breath Dextrose/Water (50% Dextrose In Water 50 Ml Syringe) 50 ml IVPUSH ASDIRECTED PRN PRN Reason: Hypoglycemia Dextrose/Water (50% Dextrose In Water 50 Ml Syringe) 50 ml IVPUSH ASDIRECTED PRN PRN Reason: Hypoglycemia Enoxaparin Sodium (Enoxaparin 40 Mg/0.4 Ml Syringe) 40 mg SUBCUT Q24H [facility] Last Admin: 08/04/21 19:50 Dose: 40 mg Documented by: Glucagon (Glucagon,Human Recombinant 1 Mg Vial) 1 mg IM ASDIRECTED PRN PRN Reason: Hypoglycemia Glucagon (Glucagon,Human Recombinant 1 Mg Vial) 1 mg IM ASDIRECTED PRN PRN Reason: Hypoglycemia Hydrochlorothiazide (Hydrochlorothiazide 25 Mg Tab) 25 mg PO DAILY [facility] Last Admin: 08/05/21 08:17 Dose: 25 mg Documented by: Ceftriaxone Sodium/Dextrose 2 (gm/ Premix) 50 mls @ 100 mls/hr IV Q24H [facility] Last Admin: 08/04/21 19:31 Dose: Not Given Documented by: Azithromycin 500 mg/ Sodium (Chloride) 250 mls @ 250 mls/hr IV DAILY [facility] Last Admin: 08/05/21 08:18 Dose: 250 mls/hr Documented by: Insulin Aspart (Insulin Aspart 100 Units/Ml 3 Ml Pen) 0 unit SUBCUT TIDAC [facility]; Protocol Last Admin: 08/05/21 08:17 Dose: 2 unit Documented by: Insulin Glargine (Insulin Glargine,Human Rec. Analog 100 Units/Ml 3 Ml Pen) 20 units SUBCUT DAILY [facility] Last Admin: 08/05/21 08:18 Dose: 20 unit Documented by: Pantoprazole Sodium (Pantoprazole 40 Mg Tab.Cr) 40 mg PO DAILY [facility] Last Admin: 08/05/21 08:18 Dose: 40 mg Documented by: Sodium Chloride (Sodium Chloride 0.9% 10 Ml Syringe) 10 ml FLUSH ASDIRECTED PRN PRN Reason: Keep Vein Open Last Admin: 08/04/21 16:25 Dose: 10 ml Documented by: Sodium Chloride (Sodium Chloride 0.9% 2.5 Ml Syringe) 2.5 ml FLUSH ASDIRECTED PRN PRN Reason: Keep Vein Open Last Admin: 08/04/21 16:24 Dose: 2.5 ml Documented by: Discontinued Medications Ceftriaxone Sodium/Dextrose 1 (gm/ Premix) 50 mls @ 100 mls/hr IV ONETIME ONE Stop: 08/04/21 16:15 Last Admin: 08/04/21 16:24 Dose: 100 mls/hr Documented by: Methylprednisolone Sodium Succinate (Methylprednisolone Sodium Succinate 125 Mg/2 Ml Sdv) 125 mg IVPUSH ONETIME ONE Stop: 08/04/21 15:46 Last Admin: 08/04/21 16:24 Dose: 125 mg Documented by:
== END 2021-08-05 11:45 | disposition home or self-care (01) | DRG 153 ==
LOC: MW.ED 14:03 → MW.MS 15:50 → UNDOADMIN 15:50
PROVIDERS: ADMIT Pediatrics; ATTEND Pediatrics
DX: R09.02 Hypoxemia (principal); J06.9 Acute upper respiratory infection, unspecified; Z97.3 Presence of spectacles and contact lenses; I10 Essential (primary) hypertension; E11.9 Type 2 diabetes mellitus without complications; Z20.822 Contact with and (suspected) exposure to COVID-19; H54.7 Unspecified visual loss; Z88.7 Allergy status to serum and vaccine; G47.30 Sleep apnea, unspecified; E66.9 Obesity, unspecified; Z86.19 Personal history of other infectious and parasitic diseases; Z79.899 Other long term (current) drug therapy; Z99.81 Dependence on supplemental oxygen; Z79.4 Long term (current) use of insulin; Z98.52 Vasectomy status; Z68.36 Body mass index [BMI] 36.0-36.9, adult
CPT/HCPCS: 0240U; 36415; 71045; 80053; 82947; 83880; 84484; 85025; 85379; 93005; 99285-25; A9270-GY; J0456; J0696; J1650; J1815-GY; J2930; J7050

== ENCOUNTER 2021-08-13 12:17 | Emergency (ER) | payer MEDICARE, BC ==
[2021-08-13] MEDS ORDERED: Sodium Chloride 0.9% 10 ML Syringe FLUSH PRN (13:08)
[2021-08-13] MEDS ORDERED: Sodium Chloride 0.9% 2.5 ML Syringe FLUSH PRN (13:08)
--- NOTE | 2021-08-13 13:41 | PCM.EKG ---
#1 Interpretation EKG Date: 08/13/21 Time: 13:12 Rhythm: NSR Rate (Beats/Min): 61 [place]: Normal P-Wave: Present QRS: Normal ST-T: Normal QT: Normal MN/PQ Interval: 150 EKG Interpretation Comments: unremarkable EKG, no CITLALI/STD
--- NOTE | 2021-08-13 14:13 | CR ---
INDICATION: Recent pneumonia. Worsening. COMPARISON: 08/04/2021. FINDINGS: PA and lateral views of the chest were obtained. The cardiac silhouette is stable. The pulmonary vasculature is within normal limits. The lungs are clear bilaterally. There are degenerative changes in the spine. IMPRESSION: No evidence of acute pulmonary disease. Dictated by Irvin Ashraf MD @ 08/13/2021 2:11:19 PM (Electronically Signed)
[2021-08-13 14:18] LABS: BLOOD UREA NITROGEN,BUN 17 mg/dL (7.0-18.0); CARBON DIOXIDE,CO2 29.9 mmol/L (21.0-32.0); CHLORIDE,CL 105 mmol/L (98-107); GLUCOSE RANDOM 177 mg/dL (74-106); POTASSIUM,K 4.3 mmol/L (3.5-5.1); SODIUM,NA 141 mmol/L (136-148)
[2021-08-13 15:13] LABS: CORONAVIRUS COVID-19 NAA NEGATIVE (NEGATIVE); INFLUENZA A NAA NEGATIVE (NEGATIVE); INFLUENZA B NAA NEGATIVE (NEGATIVE)
[2021-08-13] MEDS ORDERED: Iopamidol 755 MG/ML 500 ML Multipack Bottle IVPUSH STA (16:14)
--- NOTE | 2021-08-13 16:43 | EDM.PDOC ---
ED HPI GENERAL MEDICAL PROBLEM - General Chief Complaint: Respiratory Problem Stated Complaint: SOB Time Seen by Provider: 08/13/21 13:19 Source of Information: Reports: Patient History Limitations: Reports: No Limitations - History of Present Illness INITIAL COMMENTS - FREE TEXT/NARRATIVE: HISTORY AND PHYSICAL: History of present illness: Patient is a 70-year-old male that presents to the ED for shortness of breath x2-3 days. Patient was recently admitted to our facility for URI with hypoxia and discharged with azithromycin. Patient states that he took the 5 days of antibiotics and his shortness of breath was improving until 2-3 days ago. He states his furnace is broken and noticed his shortness of breath was worse going up and down the stairs but denies any associated chest pain. Patient denies any health history and states he has never smoked or used any substances. Patient denies fever, chills, chest pain. Denies headache, neck stiff ness, change in vision, syncope, or near syncope. Denies nausea, vomiting, abdominal pain, diarrhea, constipation, or dysuria. Has not noted any blood in urine or stool. Patient has been eating and drinking appropriately. Review of systems: As per history of present illness and below otherwise all systems reviewed and negative. Past medical history: As per history of present illness and as reviewed below otherwise no ncontributory. Surgical history: As per history of present illness and as reviewed below otherwise noncontributory. Social history: See social history for further information Family history: As per history of present illness and as reviewed below otherwise noncontributory. Physical exam: General: Patient is alert, oriented, and in no acute distress. Patient sitting comfortably on exam table. Vital signs stable with O2 sats of 93%, and reviewed by me. HEENT: Atraumatic, normocephalic, pupils equal and reactive bilaterally, negative for conjunctival pallor or scleral icterus, mucous membranes moist, throat clear, neck supple, nontender, trachea midline. No drooling or trismus noted. No meningeal signs. No hot potato voice noted. Lungs: Clear to auscultation, breath sounds equal bilaterally, chest nontender. Heart: S1S2, regular rate and rhythm without overt murmur Abdomen: Soft, nondistended, nontender. Negative for masses or hepatosplenomegaly. Negative for costovertebral tenderness. Pelvis: Stable nontender. Genitourinary: Deferred. Rectal: Deferred. Skin: Intact, warm, dry. No lesions or rashes noted. Extremities: Atraumatic, negative for cords or calf pain. Neurovascular unremarkable. Neuro: Awake, alert, oriented. Cranial nerves II through XII unremarkable. Cerebellum unremarkable. Motor and sensory unremarkable throughout. Exam nonfocal. Medical Decision Making: Patient is a 70-year-old male who presents the ED for shortness of breath x2-3 days following recent admission to the hospital for viral URI with hypoxia. Will obtain cardiac evaluation and Ang CT chest See Dr. Oneill's dictation for specific EKG interpretation. NSR w/o STEMI Mild derangements of CBC and CMP are unremarkable. Covid and influenza negative. Troponin and D-dimer are negative. Chest x-ray showed no evidence of acute pulmonary disease. Angiography showed no evidence of pulmonary embolism. Upon reevaluation of patient, he remains vitally stable and comfortable throughout stay in ED. I did discuss the importance for close follow-up with a primary care provider. Strict return precautions thoroughly discussed with patient. Voices understanding and is agreeable to plan of care. Denies any further questions or concerns at this time. Diagnostics: CBC, CMP, troponin, D-dimer, EKG, chest x-ray, CT angiography, Covid, influenza, carboxyhgb Therapeutics: None Prescription: None Impression: Dyspnea Plan: 1. Follow-up with a primary care provider as discussed. Return to the ED as needed and as discussed. Definitive disposition and diagnosis as appropriate pending reevaluation and review of above. - Related Data Allergies Allergy/AdvReac Type Severity Reaction Status Date / Time flu shot Allergy Hives Uncoded 08/13/21 12:47 Home Meds: Home Meds Hydrochlorothiazide 25 mg PO DAILY 11/20/16 [History] Losartan Potassium 50 mg PO DAILY 11/20/16 [History] Tresiba Flextouch 20 units SUBCUT BID 11/20/16 [History] Insulin Aspart [NovoLOG] 20 unit SUBCUT TID 06/13/20 [History] Albuterol Sulfate [Albuterol Sulfate Hfa] 8.5 gm IH Q6H #1 hfa.aer.[email or web address] 08/05/21 [Rx] Azithromycin 500 mg PO DAILY #6 tablet 08/05/21 [Rx] Past Medical History HEENT History: Reports: Cataract, Other (See Below) Other HEENT History: wears glasses Cardiovascular History: Reports: Hypertension Respiratory History: Reports: Sleep Apnea Other Respiratory History: states has a CPAP machine but hasn't used it in 3 years Gastrointestinal History: Reports: None Genitourinary History: Reports: None Musculoskeletal History: Reports: Fracture Other Musculoskeletal History: states had fractured ankle 30 yrs. ago Neurological History: Reports: None Psychiatric History: Reports: None Endocrine/Metabolic History: Reports: Diabetes, Type II, Obesity/BMI 30+ Hematologic History: Reports: None Immunologic History: Reports: None Oncologic (Cancer) History: Reports: None Dermatologic History: Reports: None - Infectious Disease History Infectious Disease History: Reports: Chicken Pox, Measles, Mumps, Shingles Other Infectious Disease History: states had when a child. Had Tetanus and Shingles shot in November,. - Past Surgical History Head Surgeries/Procedures: Reports: None HEENT Surgical History: Reports: None Cardiovascular Surgical History: Reports: None Respiratory Surgical History: Reports: None GI Surgical History: Reports: Colonoscopy, Other (See Below) Male Surgical History: Reports: None, Vasectomy Endocrine Surgical History: Reports: None Neurological Surgical History: Reports: None Musculoskeletal Surgical History: Reports: None Oncologic Surgical History: Reports: None Dermatological Surgical History: Reports: None Social & Family History - Family History Family Medical History: No Pertinent Family History - Tobacco Use Tobacco Use Status *Q: Never Tobacco User - Caffeine Use Caffeine Use: Reports: None - Recreational Drug Use Recreational Drug Use: No ED ROS GENERAL - Review of Systems Review Of Systems: Comprehensive ROS is negative, except as noted in HPI. ED EXAM, GENERAL - Physical Exam Exam: See Below (see dictation) Course - Vital Signs Last Recorded V/S: Last Vital Signs Temp 96.9 F 08/13/21 12:41 Pulse 86 08/13/21 17:45 Resp 20 08/13/21 17:45 BP 163/81 H 08/13/21 17:45 Pulse Ox 98 08/13/21 17:45 - Orders/Labs/Meds Orders: Active Orders 24 hr Category Date Time Status Saline Lock Insert [OM.PC] Stat Oth 08/13/21 13:08 Ordered Labs: Laboratory Tests 08/13/21 08/13/21 08/13/21 Range/Units 13:16 13:16 13:16 WBC 9.45 (4.0-11.0) K/uL RBC 4.96 (4.50-5.90) M/uL Hgb 14.6 (13.0-17.0) g/dL Hct 43.8 (38.0-50.0) % MCV 88.3 (80.0-98.0) fL MCH 29.4 (27.0-32.0) pg MCHC 33.3 (31.0-37.0) g/dL RDW Std Deviation 44.6 (28.0-62.0) fl RDW Coeff of Mary 14 (11.0-15.0) % Plt Count 221 (150-400) K/uL MPV 9.90 (7.40-12.00) fL Neut % (Auto) 72.1 (48.0-80.0) % Lymph % (Auto) 16.0 (16.0-40.0) % Dickson % (Auto) 9.6 (0.0-15.0) % Eos % (Auto) 1.9 (0.0-7.0) % Baso % (Auto) 0.4 (0.0-1.5) % Neut # (Auto) 6.8 H (1.4-5.7) K/uL Lymph # (Auto) 1.5 (0.6-2.4) K/uL Dickson # (Auto) 0.9 H (0.0-0.8) K/uL Eos # (Auto) 0.2 (0.0-0.7) K/uL Baso # (Auto) 0.0 (0.0-0.1) K/uL Nucleated RBC % 0.0 /100WBC Nucleated RBCs # 0 K/uL D-Dimer, Quantitative 0.43 (0.0-0.50) mg/L FEU ABG Carboxyhemoglobin (0-15) % Sodium 141 (136-148) mmol/L Potassium 4.3 (3.5-5.1) mmol/L Chloride 105 (98-107) mmol/L Carbon Dioxide 29.9 (21.0-32.0) mmol/L BUN 17 (7.0-18.0) mg/dL Creatinine 1.1 (0.8-1.3) mg/dL Est Cr Clr Drug Dosing 61.32 mL/min Estimated GFR (MDRD) > 60.0 ml/min Glucose 177 H (74-106) mg/dL Calcium 8.7 (8.5-10.1) mg/dL Total Bilirubin 0.5 (0.2-1.0) mg/dL AST 12 L (15-37) IU/L ALT 27 (14-63) IU/L Alkaline Phosphatase 61 (46-116) U/L Troponin I < 0.050 (0.000-0.056) ng/mL B-Natriuretic Peptide (<100) PG/ML Total Protein 6.7 (6.4-8.2) g/dL Albumin 3.3 L (3.4-5.0) g/dL Globulin 3.4 (2.6-4.0) g/dL Albumin/Globulin Ratio 1.0 (0.9-1.6) Influenza Type A RNA (NEGATIVE) Influenza Type B RNA (NEGATIVE) SARS-CoV-2 RNA ([place]) (NEGATIVE) 08/13/21 08/13/21 08/13/21 Range/Units 13:16 13:16 14:30 WBC (4.0-11.0) K/uL RBC (4.50-5.90) M/uL Hgb (13.0-17.0) g/dL Hct (38.0-50.0) % MCV (80.0-98.0) fL MCH (27.0-32.0) pg MCHC (31.0-37.0) g/dL RDW Std Deviation (28.0-62.0) fl RDW Coeff of Mary (11.0-15.0) % Plt Count (150-400) K/uL MPV (7.40-12.00) fL Neut % (Auto) (48.0-80.0) % Lymph % (Auto) (16.0-40.0) % Dickson % (Auto) (0.0-15.0) % Eos % (Auto) (0.0-7.0) % Baso % (Auto) (0.0-1.5) % Neut # (Auto) (1.4-5.7) K/uL Lymph # (Auto) (0.6-2.4) K/uL Dickson # (Auto) (0.0-0.8) K/uL Eos # (Auto) (0.0-0.7) K/uL Baso # (Auto) (0.0-0.1) K/uL Nucleated RBC % /100WBC Nucleated RBCs # K/uL D-Dimer, Quantitative (0.0-0.50) mg/L FEU ABG Carboxyhemoglobin 2.8 (0-15) % Sodium (136-148) mmol/L Potassium (3.5-5.1) mmol/L Chloride (98-107) mmol/L Carbon Dioxide (21.0-32.0) mmol/L BUN (7.0-18.0) mg/dL Creatinine (0.8-1.3) mg/dL Est Cr Clr Drug Dosing mL/min Estimated GFR (MDRD) ml/min Glucose (74-106) mg/dL Calcium (8.5-10.1) mg/dL Total Bilirubin (0.2-1.0) mg/dL AST (15-37) IU/L ALT (14-63) IU/L Alkaline Phosphatase (46-116) U/L Troponin I (0.000-0.056) ng/mL B-Natriuretic Peptide 20 (<100) PG/ML Total Protein (6.4-8.2) g/dL Albumin (3.4-5.0) g/dL Globulin (2.6-4.0) g/dL Albumin/Globulin Ratio (0.9-1.6) Influenza Type A RNA NEGATIVE (NEGATIVE) Influenza Type B RNA NEGATIVE (NEGATIVE) SARS-CoV-2 RNA ([place]) NEGATIVE (NEGATIVE) Meds: Medications Discontinued Medications Generic Name Dose Route Start Last Admin Trade Name Freq PRN Reason Stop Dose Admin Iopamidol 100 ml 08/13/21 16:14 08/13/21 16:14 Iopamidol 755 Mg/Ml 500 Ml Multipack Bottle IVPUSH 08/13/21 16:15 100 ml ONETIME STA Administration Sodium Chloride 10 ml 08/13/21 13:08 08/13/21 13:28 Sodium Chloride 0.9% 10 Ml Syringe FLUSH 10 ml ASDIRECTED PRN Administration Keep Vein Open Sodium Chloride 2.5 ml 08/13/21 13:08 08/13/21 13:28 Sodium Chloride 0.9% 2.5 Ml Syringe FLUSH 2.5 ml ASDIRECTED PRN Administration Keep Vein Open Departure - Departure Time of Disposition: 17:32 Disposition: Home, Self-Care 01 Clinical Impression: Dyspnea - Discharge Information Instructions: Shortness of Breath, Adult, [id number] Referrals: Jose Luis Lema MD [Primary Care Provider] - Forms: ED Department Discharge Additional Instructions: The following information is given to patients seen in the emergency department who are being discharged to home. This information is to outline your options for follow-up care. We provide all patients seen in our emergency department with a follow-up referral. The need for follow-up, as well as the timing and circumstances, are variable depending upon the specifics of your emergency department visit. If you don't have a primary care physician on staff, we will provide you with a referral. We always advise you to contact your personal physician following an emergency department visit to inform them of the circumstance of the visit and for follow-up with them and/or the need for any referrals to a consulting specialist. The emergency department will also refer you to a specialist when appropriate. This referral assures that you have the opportunity for follow-up care with a specialist. All of these measure are taken in an effort to provide you with optimal care, which includes your follow-up. Under all circumstances we always encourage you to contact your private physician who remains a resource for coordinating your care. When calling for follow-up care, please make the office aware that this follow-up is from your recent emergency room visit. If for any reason you are refused follow-up, please contact the [facility] at and asked to speak to the emergency department charge nurse. [facility] [address] [place] [id number] [id number] 1. Follow-up with a primary care provider as discussed. Return to the ED as needed and as discussed. Sepsis Event Note (ED) - Evaluation Sepsis Screening Result: No Definite Risk - Focused Exam Vital Signs: Vital Signs Temp Pulse Resp BP Pulse Ox 08/13/21 17:45 86 20 163/81 H 98 08/13/21 12:41 96.9 F 74 18 195/69 H 93 L - My Orders Last 24 Hours: My Active Orders 08/13/21 13:08 Saline Lock Insert [OM.PC] Stat - Assessment/Plan Last 24 Hours: My Active Orders 08/13/21 13:08 Saline Lock Insert [OM.PC] Stat
--- NOTE | 2021-08-13 16:46 | CT ---
INDICATION: Hypoxia, shortness of breath TECHNIQUE: Contrast enhanced axial CT imaging through the chest, optimized for assessment of the pulmonary arterial tree. 100 mL Isovue 370 contrast agent was administered intravenously. Sagittal and coronal reconstructions are provided. COMPARISON: None FINDINGS: There is adequate opacification of the pulmonary arterial tree without evidence of thromboembolism. The main pulmonary artery is nonenlarged. The heart is normal in size. Coronary artery calcification is present. There is no pericardial effusion. The thoracic aorta is normal in caliber. A few borderline enlarged mediastinal lymph nodes are nonspecific. There is minimal bilateral atelectasis. The lungs are otherwise clear. There is no pleural effusion or pneumothorax. The thoracic osseous structures are unremarkable. No significant abnormality is demonstrated in the visualized upper abdomen. IMPRESSION: No evidence of pulmonary embolism. Please note that all CT scans at this facility use dose modulation, iterative reconstruction, and/or weight-based dosing when appropriate to reduce radiation dose to as low as reasonably achievable. Dictated by Alphonse Haywood MD @ 08/13/2021 4:43:56 PM (Electronically Signed)
[2021-08-13 17:49] VITALS: BP 163/81; PULSE 86
== END 2021-08-13 17:49 | disposition home or self-care (01) ==
LOC: MW.ED 12:17
DX: R06.00 Dyspnea, unspecified (principal); I10 Essential (primary) hypertension; E11.9 Type 2 diabetes mellitus without complications; E66.9 Obesity, unspecified; Z68.36 Body mass index [BMI] 36.0-36.9, adult; Z88.7 Allergy status to serum and vaccine; Z79.4 Long term (current) use of insulin; Z79.899 Other long term (current) drug therapy; Z20.822 Contact with and (suspected) exposure to COVID-19
CPT/HCPCS: 0240U; 36415; 71046; 71275; 80053; 82375; 83880; 84484; 85025; 85379; 93005; 99285; Q9967